=== PATIENT | female | born 1990 ===

== ENCOUNTER 2020-06-27 22:46 | Emergency (ER) | payer OTHER, SELFPAY ==
--- NOTE | ~2020-06-27 | US_ITS ---
EXAMINATION: ABDOMINAL ULTRASOUND LIMITED CLINICAL INFORMATION: Right upper quadrant pain. COMPARISON: 06/15/2018. TECHNIQUE: Real-time imaging of the right upper quadrant abdominal viscera. FINDINGS: PANCREAS: The visualized pancreatic head and body are normal in appearance. The remainder of the pancreas is obscured from visualization by the overlying bowel gas. LIVER: The liver is of normal size and echogenicity without focal lesions nor intrahepatic biliary ductal dilation. GALLBLADDER: Normal. The gallbladder is physiologically distended without evidence of stones, sludge, polyps, wall thickening or pericholecystic fluid. COMMON BILE DUCT: Normal in caliber measuring 0.2 cm in diameter. RIGHT KIDNEY: Normal. No hydronephrosis. No renal calculi or focal parenchymal lesions. The kidney measures 11.5 cm in maximum dimension. FREE FLUID: None. US/US abdomen limited IMPRESSION: Unremarkable limited right upper quadrant ultrasound.
[2020-06-27 22:50] VITALS: BP 116/59; PULSE 86; RESP 16; TEMP 36.8; O2SAT 96; BMI 32.5
--- NOTE | 2020-06-27 23:48 | ED.ABDPAIN ---
HPI - Abdominal Pain General Chief Complaint: Abdominal Pain Stated Complaint: ABD PAIN Time Seen by Provider: 06/27/20 23:39 Source: patient Mode of arrival: ambulatory Limitations: no limitations History of Present Illness HPI narrative: Patient chronic upper abdominal pain for last 5 years with multiple evaluation patient claims nobody has done anything on her pain has not seen any product management intern has not any endoscopy done patient now is 18 weeks comes for pain which is no different than in the past. No nausea no vomiting no diarrhea no vaginal bleed no urinary complaints no fever no chills MD elicited complaint: abdominal pain Pertinent past history: none Onset (ago): year(s) Pain Consistency: constant Location: epigastric and RUQ Severity: mild Exacerbating factors: nothing Relieving factors: nothing Related Data Previous Rx's Medication Instructions Recorded omeprazole 40 mg PO DAILY #30 cap 06/28/20 Allergies Allergy/AdvReac Type Severity Reaction Status Date / Time No Known Allergies Allergy Unverified 12/23/19 18:11 [No Known Allergies*] Review of Systems Review of Systems Constitutional : No Weight loss, No Fever, No Chills ENT/Mouth : No sore throat, No Rhinorrhea Eyes: No Eye Pain, No Swelling Cardiovascular : No Chest Pain, no palpitations Respiratory : No Cough, No Sputum, no shortness of breath Gastrointestinal : no Nausea, No Vomiting, No Diarrhea, ++ abdominal Pain, no black stools Genitourinary : No Dysuria, No Urinary Frequency Musculoskeletal : No joint pain, No Myalgias, No Joint Swelling Skin : No Skin Lesions, No rash Neuro : No Weakness, No Numbness, No Dizziness, No Headache Psych : No Anxiety/Panic, No Depression Heme/Lymph: No Bruising, No Lymphadenopathy Endocrine : No Polyuria, No Polydipsia All other systems reviewed and are negative Physical Exam Vital Signs: Vital Signs: Last Vital Signs Temp 98.3 F 06/27/20 22:50 Pulse 86 06/27/20 22:50 Resp 16 06/27/20 22:50 BP 116/59 L 06/27/20 22:50 Pulse Ox 96 06/27/20 22:50 Body Mass Index 32.5 Appearance: Alert. Oriented X3. No acute distress. Eyes: Pupils equal, round and reactive to light. ENT: Pharynx normal. Neck: Normal inspection. Neck supple. CVS: Normal heart rate and rhythm. Pulses normal. Respiratory: No respiratory distress. Breath sounds normal. Abdomen: Soft mild tenderness in epigastric area no significant tenderness in right upper quadrant area . Bowel sounds are present, no CVA tenderness, gravid uterus+ Skin: Skin warm and dry. Normal skin color. Normal skin turgor. Extremities: No lower extremity edema. Neuro: Oriented X 3. No motor deficit. No sensory deficit. MDM - Abdominal Pain MDM Narrative Medical decision making narrative: Patient nonspecific chronic abdominal pain with week history says no follow-up was done and not seen by product management intern will check the labs checked the records from [facility] give her Prilosec and Maalox ultrasound of abdomen was negative for gallstones Differential Diagnosis Differential diagnosis: Likely abdominal pain, gastritis and peptic ulcer disease Lab Data Attestation: I reviewed the patient's lab results. Result diagrams: 06/28/20 00:28 06/28/20 00:28 Labs: Lab Results 06/28/20 06/28/20 06/28/20 Range/Units 00:28 00:28 00:28 WBC 14.8 H (4.8-10.8) X10*3/uL RBC 3.83 L (4.20-5.50) X10*6/uL Hgb 12.2 (12.0-16.0) g/dl Hct 37.1 (37-47) % MCV 96.9 (80-98) fL MCH 31.9 (27.0-33.0) pg MCHC 32.9 (31.0-35.0) g/dl RDW 13.3 (11.0-16.0) % Plt Count 233 (160-400) X10*3/uL MPV 11.0 (9.4-12.3) fL Immature Gran % (Auto) 0.7 H (0.0-0.4) % Neut % (Auto) 76.8 H (45-73) % Lymph % (Auto) 16.5 L (20-40) % [place] % (Auto) 5.6 (2-11) % Eos % (Auto) 0.3 (0-4) % Baso % (Auto) 0.1 (0-2) % Lymph # (Auto) 2.4 (1.2-4.9) X10*3/uL [place] # (Auto) 0.8 (0.1-1.2) X10*3/uL Eos # (Auto) 0.0 (0.0-0.4) X10*3/uL Baso # (Auto) 0.0 (0.0-0.2) X10*3/uL Abs Immat Gran (auto) 0.11 H (0.00-0.03) X10*3/uL Absolute Neuts (auto) 11.3 H (2.0-8.3) X10*3/uL Absolute Nucleated RBC 0.000 (0.0-0.012) X10*3/uL Nucleated RBC % (auto) 0.0 (0.0-0.2) /100WBC Sodium 135 (135-145) mmol/L Potassium 3.7 (3.3-5.1) mmol/L Chloride 102 (96-108) mmol/L Carbon Dioxide 23 (22-29) mmol/L Anion Gap 14 (12-20) BUN 9 (9-16) mg/dL Creatinine 0.64 (0.5-1.4) mg/dL Estim Creat Clear Calc 135.1 Estimated GFR > 60 Random Glucose 95 (60-115) mg/dL Calcium 9.1 (8.4-10.2) mg/dL Total Bilirubin < 0.2 (0.0-1.0) mg/dL Direct Bilirubin < 0.2 (0.0-0.5) mg/dL AST 12 (5-31) U/L ALT 10 (0-31) U/L Alkaline Phosphatase 70 (39-117) U/L Total Protein 6.8 (6.5-8.0) g/dL Albumin 3.7 (3.5-5.0) g/dL Lipase 34 (8-78) U/L Urine Color YELLOW Urine Appearance CLEAR Urine pH 6.0 (5.0-8.0) Ur Specific [place] >= 1.030 H (1.005-1.025) Urine Protein NEG (NEG-TRACE) MG/DL Urine Glucose (UA) NEG (NEG) MG/DL Urine Ketones NEG (NEG) MG/DL Urine Blood NEG (NEG) Urine Nitrite NEG (NEG) Ur Leukocyte Esterase NEG (NEG) Discharge Plan Discharge Clinical Impression: Chronic GERD Patient Disposition: Home, Self-Care Instructions: Gastroesophageal Reflux Disease (ED) Additional Instructions: Avoid fried/ spicy food Take medication as advised. Follow-up with product management intern Prescriptions: New omeprazole 40 mg capsule,delayed release(DR/EC) 40 mg PO DAILY Qty: 30 RF: 0 PMFSH Past Medical History Medical History Tonsillectomy planned Social History Social History Advance Directives: No Advance Directives Information Provided: No
[2020-06-28] MEDS: Magnesium Hydrox/Alum Hydrox 30 ML ORAL.SUSP PO (00:31)
[2020-06-28] MEDS: Omeprazole 40 MG CAPSULE.DR PO (00:31)
[2020-06-28 00:33] LABS: Basophils Percent Auto 0.1 % (0-2); Eosinophils Percent Auto 0.3 % (0-4); Hematocrit 37.1 % (37-47); Hemoglobin 12.2 g/dl (12.0-16.0); Imm Gran Abs Auto 0.11 X10*3/uL (0.00-0.03); Imm Gran Pct Auto 0.7 % (0.0-0.4); Lymphocytes Absolute Auto 2.4 X10*3/uL (1.2-4.9); Lymphocytes Percent Auto 16.5 % (20-40); MANUAL DIFF FLAG NO; Mean Corpuscular HGB Conc 32.9 g/dl (31.0-35.0); Mean Corpuscular Hemoglobin 31.9 pg (27.0-33.0); Mean Corpuscular Volume 96.9 fL (80-98); Monocytes Absolute Auto 0.8 X10*3/uL (0.1-1.2); Monocytes Percent Auto 5.6 % (2-11); Neutrophils Absolute Auto 11.3 X10*3/uL (2.0-8.3); Neutrophils Percent Auto 76.8 % (45-73); Platelet Count 233 X10*3/uL (160-400); Red Blood Count 3.83 X10*6/uL (4.20-5.50); Red Cell Distribution Width 13.3 % (11.0-16.0); White Blood Count 14.8 X10*3/uL (4.8-10.8)
[2020-06-28 00:37] LABS: Glucose Urine UA NEG (NEG); Leukocyte Esterase Urine NEG (NEG); Nitrite Urine NEG (NEG); Specific Gravity - Urine >= 1.030 (1.005-1.025); Urine Blood NEG (NEG); Urine Ketones NEG (NEG); Urine Protein NEG (NEG-TRACE)
[2020-06-28 00:40] LABS: Appearance Urine CLEAR; Color Urine YELLOW
[2020-06-28 01:10] VITALS: BP 122/60; PULSE 80; RESP 16; O2SAT 98
[2020-06-28 01:10] LABS: Alanine Aminotransferase 10 U/L (0-31); Albumin Level 3.7 g/dL (3.5-5.0); Alkaline Phosphatase 70 U/L (39-117); Anion Gap 14 (12-20); Aspartate Amino Transferase 12 U/L (5-31); Bilirubin Direct < 0.2 mg/dL (0.0-0.5); Bilirubin Total < 0.2 mg/dL (0.0-1.0); Blood Urea Nitrogen 9 mg/dL (9-16); Calcium 9.1 mg/dL (8.4-10.2); Carbon Dioxide 23 mmol/L (22-29); Chloride 102 mmol/L (96-108); Creatinine Clr Calc Pharmacy 135.1; Estimated Glomerular Filt Rate > 60; Glucose Random 95 mg/dL (60-115); Lipase 34 U/L (8-78); Potassium 3.7 mmol/L (3.3-5.1); Sodium 135 mmol/L (135-145); Total Protein 6.8 g/dL (6.5-8.0)
== END 2020-06-28 02:29 | disposition home or self-care (01) ==
PROVIDERS: Emergency Provider Internal Medicine
DX: K21.9 Gastro-esophageal reflux disease without esophagitis (principal); R10.11 Right upper quadrant pain; Z79.899 Other long term (current) drug therapy
CPT/HCPCS: 36415; 76705; 80048; 80076; 81003; 83690; 85025; 99284

== ENCOUNTER 2022-04-19 17:47 | Emergency (ER) | payer OTHER, SELFPAY ==
--- NOTE | ~2022-04-19 | CT_ITS ---
EXAMINATION: CT HEAD WITHOUT CONTRAST CLINICAL INFORMATION: Blurred vision. COMPARISON: None. TECHNIQUE: Contiguous axial imaging was performed from the skull base to vertex without intravenous administration of contrast. Coronal and sagittal reformatted images are performed at the CT scanner. [This CT examination was performed using dose optimization techniques as appropriate, variously including the following: *Automated exposure control *Adjustment of mA and/or kV according to patient size (this includes techniques or standardized protocols for targeted exams where dose is matched to indication/reason for exam; i.e. extremities or head) *Use of iterative reconstruction technique] DLP: 602 mGy-cm. FINDINGS: There is no evidence of acute intracranial hemorrhage or territorial infarction. No abnormal mass-effect or midline shift is seen. [place] to white matter differentiation is well preserved. No extra-axial fluid collections are identified. The ventricles are normal in size. There is no abnormal attenuation within the brain parenchyma. There is no osseous abnormality. The mastoid air cells and visualized portions of the paranasal sinuses are well-aerated. CT/CT head/brain wo IV con IMPRESSION: No acute intracranial pathology.
[2022-04-19 17:50] VITALS: BP 136/96; PULSE 121; RESP 18; TEMP 36.6; O2SAT 100; BMI 32.9
--- NOTE | 2022-04-19 17:54 | ECG_ITS ---
Test Reason : CP Blood Pressure : / mmHG Vent. Rate : 081 BPM Atrial Rate : 081 BPM P-R Int : 146 ms QRS Dur : 078 ms QT Int : 368 ms P-R-T Axes : 064 003 021 degrees QTc Int : 427 ms Normal sinus rhythm Normal ECG No previous ECGs available Referred By: Generic ED Physician Electronically Signed By:Scot Zavaleta
--- NOTE | 2022-04-19 18:31 | ED.CHESTPAIN ---
HPI - Chest Pain General Chief Complaint: Chest Pain Stated Complaint: hard time breathing Time Seen by Provider: 04/19/22 18:02 Source: patient Mode of arrival: ambulatory Limitations: no limitations History of Present Illness HPI narrative: 31-year-old female no significant medical history presenting to the emergency department with multiple complaints patient is reporting substernal nonradiating chest pressure associated with discomfort with deep breathing, patient also reports some associated shortness of breath both at rest and with exertion, she has been having a tugging sensation in her left shoulder which she has a difficult time describing, patient tells me that she has been experiencing dizziness described as room spinning worsened with positional changes better at rest, 1 dizziness is severe she feels like she is going to pass out and her vision goes black. Patient tells male this has been going on for 3-4 days not improving. Denies fevers, chills, cough, headache, vision changes, weakness. 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 Related Data Previous Rx's Medication Instructions Recorded omeprazole 40 mg capsule,delayed 40 mg PO DAILY #30 caps 06/28/20 release cefuroxime axetil 250 mg tablet 250 mg PO BID 7 days #14 tabs 04/19/22 meclizine 25 mg tablet 25 mg PO DAILY PRN dizziness #14 04/19/22 tabs Allergies Allergy/AdvReac Type Severity Reaction Status Date / Time No Known Allergies Allergy Unverified 12/23/19 18:11 [No Known Allergies*] Review of Systems Review of Systems: Constitutional : No Weight loss, No Fever, No Chills, No Fatigue, No Malaise ENT/Mouth : No sore throat, No Rhinorrhea Eyes: No Eye Pain, No Swelling, No Redness Cardiovascular : + Chest Pain, + SOB, + Dyspnea on Exertion, No Orthopnea, No Edema, No Palpitations Respiratory : No Cough, No Sputum, No Wheezing Gastrointestinal : No Nausea, No Vomiting, No Diarrhea, No Constipation, No abdominal Pain, No Hematochezia, No Melena Genitourinary : No Dysuria, No Urinary Frequency, No Hematuria, Musculoskeletal : No joint pain, No Myalgias, No Joint Swelling Skin : No Skin Lesions, No rash Neuro : No Weakness, No Numbness, + Dizziness, No Headache Psych : No Anxiety/Panic, No Depression All other systems reviewed and are negative Yes all other systems are reviewed and are negative [facility] Past Medical History Attestation statement: The following information was validated with the patient. Source: old records reviewed and nursing notes reviewed Medical History Tonsillectomy planned Social History Social History Smoked in Last 30 Days: Yes Use of substances other than those prescribed or required for medical reasons: Yes Substance Use Type: Marijuana Advance Directives: No Advance Directives Information Provided: No Patient : No Physical Exam Vital Signs: Vital Signs: Last Vital Signs Temp 98.1 F 04/19/22 20:35 Pulse 79 04/19/22 20:35 Resp 20 04/19/22 20:35 BP 122/74 04/19/22 20:35 Pulse Ox 97 04/19/22 20:35 O2 Del Method 04/19/22 20:35 BMI result Body Mass Index 32.9 Vital signs stable Appearance: Alert.? Oriented X3.? No acute distress.? Head: Normocephalic, atraumatic, no step-offs or deformities Eyes: Pupils equal, round and reactive to light.? Extraocular movements intact and pain-free. ENT: Pharynx normal.? Neck: Normal inspection.? Neck supple.? CVS: Normal heart rate and rhythm.? Pulses normal.? Respiratory: No respiratory distress.? Breath sounds normal.? Abdomen: Soft and nontender.? Skin: Skin warm and dry.? Normal skin color.? Normal skin turgor.? Extremities: No lower extremity edema.? No calf ttp. 5/5 strength to bilateral upper and lower extremities Back: No midline tenderness, no C-spine tenderness, full range of motion, no CVA tenderness bilaterally Neuro: Oriented X 3.? No motor deficit.? No sensory deficit. CN 2-12 intact . Normal [id number], fner-ir-[id number], steady tandem gait with normal coordination. NIH stroke scale 0. Course Reevaluation(s) Reevaluation #1: CBC within normal limits. Chemistry with no acute findings requiring intervention. Negative troponin, EKG nonischemic. BNP within normal limits. D-dimer negative unlikely PE. Urine infected will start patient on Ceftin. Orthostatic vital signs negative. Flu/COVID negative. CT of the head no acute findings. Patient feeling slightly better after fluids and meclizine. Time: 20:31 Reevaluation #2: Educated patient on diagnosis and treatment plan, answered all question, patient verbalizes understanding. At this time patient will be discharged home, advised to return with new or worsening symptoms. Educated on worrisome signs and symptoms and when to return. At this time I feel comfortable discharge home. Medications Administered Discontinued Medications Generic Name Dose Route Start Last Admin Trade Name Freq PRN Reason Stop Dose Admin Sodium Chloride 1,000 mls @ 999 mls/hr 04/19/22 19:00 04/19/22 19:20 Ns IV 04/19/22 20:00 999 mls/hr .Q1H1M KERRY Administration Ketorolac Tromethamine 30 mg 04/19/22 18:49 04/19/22 19:36 Ketorolac Tromethamine 15 Mg/Ml Vial IVPUSH 04/19/22 18:50 30 mg ONCE ONE Administration Meclizine HCl 25 mg 04/19/22 18:48 04/19/22 19:36 Meclizine Hcl 25 Mg Tablet PO 04/19/22 18:49 25 mg ONCE ONE Administration Medical Decision Making Medical Decision Making [facility] Narrative: 1828 31-year-old female presents with chest pain, shortness of breath, dizziness times 3-4 days worsening. Physical exam benign Likely BPPV or viral infection. Unlikely PE, DVT, ACS, CHF, pneumonia, intracranial hemorrhage, stroke, posterior stroke. Plan at this time labs, imaging, urine, orthostatic vital signs. Will give meclizine and fluids. Differential Diagnosis Differential Diagnoses: The differential diagnosis associated with the presentation includes Likely BPPV or viral infection. Unlikely PE, DVT, ACS, CHF, pneumonia, intracranial hemorrhage, stroke, posterior stroke. Admission/Observation Consideration of admission/observation: Escalation of care including admission/observation considered Lab Data [facility] Lab Attestation statement: I reviewed the patient's lab results. 04/19/22 19:12 04/19/22 19:12 Labs: Lab Results 04/19/22 04/19/22 04/19/22 Range/Units 19:12 19:12 19:12 WBC 9.5 (4.8-10.8) X10*3/uL RBC 4.76 (4.20-5.50) X10*6/uL Hgb 14.8 (12.0-16.0) g/dl Hct 45.2 (37.0-47.0) % MCV 95.0 (80.0-98.0) fL MCH 31.1 (27.0-33.0) pg MCHC 32.7 (31.0-35.0) g/dl RDW 12.3 (11.0-16.0) % Plt Count 302 (160-400) X10*3/uL MPV 10.1 (9.4-12.3) fL Immature Gran % (Auto) 0.2 (0.0-0.4) % Neut % (Auto) 72.5 (45-73) % Lymph % (Auto) 21.4 (20-40) % [place] % (Auto) 5.3 (2-11) % Eos % (Auto) 0.3 (0-4) % Baso % (Auto) 0.3 (0-2) % Lymph # (Auto) 2.0 (1.2-4.9) X10*3/uL [place] # (Auto) 0.5 (0.1-1.2) X10*3/uL Eos # (Auto) 0.0 (0.0-0.4) X10*3/uL Baso # (Auto) 0.0 (0.0-0.2) X10*3/uL Abs Immat Gran (auto) 0.02 (0.00-0.03) X10*3/uL Absolute Neuts (auto) 6.9 (2.0-8.3) x10*3/uL Absolute Nucleated RBC 0.000 (0.0-0.012) X10*3/uL Nucleated RBC % (auto) 0.0 (0.0-0.2) /100WBC D-Dimer High Sensitivty NG/ML Sodium 139 (135-145) mmol/L Potassium 4.6 D (3.3-5.1) mmol/L Chloride 105 (96-108) mmol/L Carbon Dioxide 24 (22-29) mmol/L Anion Gap 15 (12-20) BUN 13 (9-16) mg/dL Creatinine 0.76 (0.5-1.4) mg/dL Estim Creat Clear Calc 108.1 Estimated GFR > 60 Random Glucose 88 (60-115) mg/dL Calcium 10.1 D (8.4-10.2) mg/dL Total Bilirubin 0.3 (0.0-1.0) mg/dL AST 19 (5-31) U/L ALT 17 (0-31) U/L Alkaline Phosphatase 84 (39-117) U/L Troponin I High Sens < 3.5 (<3.5-17.0) ng/L B-Natriuretic Peptide (<100) pg/mL Total Protein 8.3 H (6.5-8.0) g/dL Albumin 4.6 (3.5-5.0) g/dL Urine Color Urine Appearance Urine pH (5.0-9.0) Ur Specific [place] (1.005-1.025) Urine Protein (Neg-Trace) mg/dL Urine Glucose (UA) (Negative) mg/dL Urine Ketones (Negative) mg/dL Urine Blood (Negative) Urine Nitrite (Negative) Ur Leukocyte Esterase (Negative) Urine RBC (0-2) /HPF Urine WBC (0-5) /HPF Ur Squamous Epith Cells (0-2) /HPF Urine Bacteria (None Seen) Hyaline Casts (0-2) /LPF Urine Test (NEGATIVE) COVID-19 (HUYEN) (Negative) COVID-19 Clin Com Influenza Type A (GARY) (Negative) Influenza Type B (GARY) (Negative) Influenza A & B Note 04/19/22 04/19/22 04/19/22 Range/Units 19:12 19:12 19:12 WBC (4.8-10.8) X10*3/uL RBC (4.20-5.50) X10*6/uL Hgb (12.0-16.0) g/dl Hct (37.0-47.0) % MCV (80.0-98.0) fL MCH (27.0-33.0) pg MCHC (31.0-35.0) g/dl RDW (11.0-16.0) % Plt Count (160-400) X10*3/uL MPV (9.4-12.3) fL Immature Gran % (Auto) (0.0-0.4) % Neut % (Auto) (45-73) % Lymph % (Auto) (20-40) % [place] % (Auto) (2-11) % Eos % (Auto) (0-4) % Baso % (Auto) (0-2) % Lymph # (Auto) (1.2-4.9) X10*3/uL [place] # (Auto) (0.1-1.2) X10*3/uL Eos # (Auto) (0.0-0.4) X10*3/uL Baso # (Auto) (0.0-0.2) X10*3/uL Abs Immat Gran (auto) (0.00-0.03) X10*3/uL Absolute Neuts (auto) (2.0-8.3) x10*3/uL Absolute Nucleated RBC (0.0-0.012) X10*3/uL Nucleated RBC % (auto) (0.0-0.2) /100WBC D-Dimer High Sensitivty 220 NG/ML Sodium (135-145) mmol/L Potassium (3.3-5.1) mmol/L Chloride (96-108) mmol/L Carbon Dioxide (22-29) mmol/L Anion Gap (12-20) BUN (9-16) mg/dL Creatinine (0.5-1.4) mg/dL Estim Creat Clear Calc Estimated GFR Random Glucose (60-115) mg/dL Calcium (8.4-10.2) mg/dL Total Bilirubin (0.0-1.0) mg/dL AST (5-31) U/L ALT (0-31) U/L Alkaline Phosphatase (39-117) U/L Troponin I High Sens (<3.5-17.0) ng/L B-Natriuretic Peptide < 10 (<100) pg/mL Total Protein (6.5-8.0) g/dL Albumin (3.5-5.0) g/dL Urine Color Urine Appearance Urine pH (5.0-9.0) Ur Specific [place] (1.005-1.025) Urine Protein (Neg-Trace) mg/dL Urine Glucose (UA) (Negative) mg/dL Urine Ketones (Negative) mg/dL Urine Blood (Negative) Urine Nitrite (Negative) Ur Leukocyte Esterase (Negative) Urine RBC (0-2) /HPF Urine WBC (0-5) /HPF Ur Squamous Epith Cells (0-2) /HPF Urine Bacteria (None Seen) Hyaline Casts (0-2) /LPF Urine Test (NEGATIVE) COVID-19 (HUYEN) (Negative) COVID-19 Clin Com Influenza Type A (GARY) Negative (Negative) Influenza Type B (GARY) Negative (Negative) Influenza A & B Note See Note 04/19/22 04/19/22 04/19/22 Range/Units 19:12 19:12 19:12 WBC (4.8-10.8) X10*3/uL RBC (4.20-5.50) X10*6/uL Hgb (12.0-16.0) g/dl Hct (37.0-47.0) % MCV (80.0-98.0) fL MCH (27.0-33.0) pg MCHC (31.0-35.0) g/dl RDW (11.0-16.0) % Plt Count (160-400) X10*3/uL MPV (9.4-12.3) fL Immature Gran % (Auto) (0.0-0.4) % Neut % (Auto) (45-73) % Lymph % (Auto) (20-40) % [place] % (Auto) (2-11) % Eos % (Auto) (0-4) % Baso % (Auto) (0-2) % Lymph # (Auto) (1.2-4.9) X10*3/uL [place] # (Auto) (0.1-1.2) X10*3/uL Eos # (Auto) (0.0-0.4) X10*3/uL Baso # (Auto) (0.0-0.2) X10*3/uL Abs Immat Gran (auto) (0.00-0.03) X10*3/uL Absolute Neuts (auto) (2.0-8.3) x10*3/uL Absolute Nucleated RBC (0.0-0.012) X10*3/uL Nucleated RBC % (auto) (0.0-0.2) /100WBC D-Dimer High Sensitivty NG/ML Sodium (135-145) mmol/L Potassium (3.3-5.1) mmol/L Chloride (96-108) mmol/L Carbon Dioxide (22-29) mmol/L Anion Gap (12-20) BUN (9-16) mg/dL Creatinine (0.5-1.4) mg/dL Estim Creat Clear Calc Estimated GFR Random Glucose (60-115) mg/dL Calcium (8.4-10.2) mg/dL Total Bilirubin (0.0-1.0) mg/dL AST (5-31) U/L ALT (0-31) U/L Alkaline Phosphatase (39-117) U/L Troponin I High Sens (<3.5-17.0) ng/L B-Natriuretic Peptide (<100) pg/mL Total Protein (6.5-8.0) g/dL Albumin (3.5-5.0) g/dL Urine Color Yellow Urine Appearance Cloudy Urine pH 7.5 (5.0-9.0) Ur Specific [place] 1.010 (1.005-1.025) Urine Protein Negative (Neg-Trace) mg/dL Urine Glucose (UA) Negative (Negative) mg/dL Urine Ketones Negative (Negative) mg/dL Urine Blood Negative (Negative) Urine Nitrite Negative (Negative) Ur Leukocyte Esterase Large (3+) H (Negative) Urine RBC 0-2 (0-2) /HPF Urine WBC 21-50 H (0-5) /HPF Ur Squamous Epith Cells >20 (0-2) /HPF Urine Bacteria 2+ (None Seen) Hyaline Casts 0-2 (0-2) /LPF Urine Test NEGATIVE (NEGATIVE) COVID-19 (HUYEN) Negative (Negative) COVID-19 Clin Com See Note Influenza Type A (GARY) (Negative) Influenza Type B (GARY) (Negative) Influenza A & B Note Independent Interpretation I performed an independent interpretation of an: Plain X-Ray and CT Scan Radiology Impression Discussion of test interpretation with radiology: I have reviewed the radiologist's reading. External Record Review External record reviewed: Inpatient record, Outpatient record, Prior outpatient labs and Outside ED record Core Measures AMI core measures followed: Yes Measure exclusions: not indicated Critical Care Time Critical Care Time Critical Care Time: No Discharge Plan Discharge Clinical Impression: UTI (urinary tract infection), Vertigo Patient Disposition: Home, Self-Care Instructions: Urinary Tract Infection in Women (ED), Vertigo (ED) Additional Instructions: Take your medications as prescribed. If you were prescribed antibiotics today, it is important that you take your medication to their entirety, do not skip any doses, do not finish them early. Follow-up with your primary care provider this week. Return to the emergency department with new or worsening symptoms. Such as fevers, chills, chest pain, shortness of breath, nausea, vomiting, dizziness, headache, vision changes, lethargy, weakness, changes in speech, difficulties with ambulation. In case of emergency call 911 Please make sure your switching positions slowly, rapid movements can increase dizziness. If you are feeling dizzy you should not drive. Prescriptions: New cefuroxime axetil 250 mg tablet 250 mg PO BID 7 Days Qty: 14 0RF meclizine 25 mg tablet 25 mg PO DAILY PRN (Reason: dizziness) Qty: 14 0RF No Action omeprazole 40 mg capsule,delayed release(DR/EC) 40 mg PO DAILY Qty: 30 0RF Referrals: Physician,Unknown J [Primary Care Provider] - 2 days Stand Alone Forms: Work/School Release
[2022-04-19] MEDS: 0.9 % Sodium Chloride 1,000 ML 999 ML IV (19:20)
[2022-04-19 19:22] VITALS: BP 133/88; PULSE 77; RESP 16; TEMP 36.4; O2SAT 96
[2022-04-19 19:25] LABS: MANUAL DIFF FLAG NO
--- NOTE | 2022-04-19 19:25 | PC.NURSE ---
Assessment: Pt's V/ S are stable, pt is on the continuous catheter finisher and inspector and it shows NSR. Pt's respiratory, cardiac and neuron assessment at the time of the assessment was with in normal. Pt denies any psychological issues at this moment. Pt has IV 20g on her RAC, IVF are running meds were administered as order.
[2022-04-19 19:27] LABS: Basophils Percent Auto 0.3 % (0-2); Eosinophils Percent Auto 0.3 % (0-4); Hematocrit 45.2 % (37.0-47.0); Hemoglobin 14.8 g/dl (12.0-16.0); Imm Gran Abs Auto 0.02 X10*3/uL (0.00-0.03); Imm Gran Pct Auto 0.2 % (0.0-0.4); Lymphocytes Percent Auto 21.4 % (20-40); Mean Corpuscular HGB Conc 32.7 g/dl (31.0-35.0); Mean Corpuscular Hemoglobin 31.1 pg (27.0-33.0); Mean Platelet Volume 10.1 fL (9.4-12.3); Monocytes Absolute Auto 0.5 X10*3/uL (0.1-1.2); Monocytes Percent Auto 5.3 % (2-11); Neutrophils Absolute Auto 6.9 x10*3/uL (2.0-8.3); Neutrophils Percent Auto 72.5 % (45-73); Platelet Count 302 X10*3/uL (160-400); Red Blood Count 4.76 X10*6/uL (4.20-5.50); Red Cell Distribution Width 12.3 % (11.0-16.0); White Blood Count 9.5 X10*3/uL (4.8-10.8)
[2022-04-19 19:28] LABS: Appearance Urine Cloudy; Color Urine Yellow; Glucose Urine UA Negative (Negative); Leukocyte Esterase Urine Large (3+) (Negative); Nitrite Urine Negative (Negative); PH 7.5 (5.0-9.0); UMIC TRIGGER UACC YES; Urine Blood Negative (Negative); Urine Ketones Negative (Negative); Urine Protein Negative (Neg-Trace)
[2022-04-19 19:32] VITALS: BP 113/79; PULSE 76
[2022-04-19 19:32] LABS: Urine Pregnancy NEGATIVE (NEGATIVE)
[2022-04-19 19:33] VITALS: BP 114/87; PULSE 81
[2022-04-19 19:33] LABS: UPreg QC Valid YES
[2022-04-19 19:34] VITALS: BP 111/87; PULSE 83
[2022-04-19 19:35] LABS: D Dimer High Sensitivity 220 NG/ML
[2022-04-19] MEDS: Meclizine HCl 25 MG TABLET PO (19:36)
[2022-04-19] MEDS: Ketorolac Tromethamine 15 MG/ML VIAL 30 MG IVPUSH (19:36)
[2022-04-19 19:44] LABS: Bacteria Urine 2+ (None Seen); Hyaline Casts Urine 0-2 /LPF (0-2); RBC Urine 0-2 /HPF (0-2); Squamous Epithelial Cell Urine >20 /HPF (0-2); UACC Culture Trigger YES; WBC Urine 21-50 /HPF (0-5)
[2022-04-19 19:45] LABS: COVID-19 Test Negative (Negative); IDNOW Serial# 16C4AD1C
[2022-04-19 19:48] LABS: IDNOW Serial# BCCEAD1C; Influenza A Negative (Negative); Influenza B2 Negative (Negative)
[2022-04-19 19:52] LABS: Alanine Aminotransferase 17 U/L (0-31); Albumin Level 4.6 g/dL (3.5-5.0); Alkaline Phosphatase 84 U/L (39-117); Anion Gap 15 (12-20); Aspartate Amino Transferase 19 U/L (5-31); Bilirubin Total 0.3 mg/dL (0.0-1.0); Blood Urea Nitrogen 13 mg/dL (9-16); Calcium 10.1 mg/dL (8.4-10.2); Carbon Dioxide 24 mmol/L (22-29); Chloride 105 mmol/L (96-108); Creatinine Clr Calc Pharmacy 108.1; Estimated Glomerular Filt Rate > 60; Glucose Random 88 mg/dL (60-115); Potassium 4.6 mmol/L (3.3-5.1); Sodium 139 mmol/L (135-145); Total Protein 8.3 g/dL (6.5-8.0)
[2022-04-19 19:58] LABS: Troponin-I High Sensitivity < 3.5 ng/L (<3.5-17.0)
[2022-04-19 19:59] LABS: B Type Natriuretic Peptide < 10 pg/mL (<100)
[2022-04-19 20:35] VITALS: BP 122/74; PULSE 79; RESP 20; TEMP 36.7; O2SAT 97
== END 2022-04-19 21:49 | disposition home or self-care (01) ==
PROVIDERS: Physician Assistant; Emergency Provider Emergency Medicine
DX: N39.0 Urinary tract infection, site not specified (principal); R42 Dizziness and giddiness; R07.89 Other chest pain; R06.02 Shortness of breath; Z20.822 Contact with and (suspected) exposure to COVID-19; Z20.828 Contact with and (suspected) exposure to other viral communicable diseases
CPT/HCPCS: 36415; 70450; 80053; 81001; 81025; 83880; 84484; 85025; 85379; 87086; 87502; 87635; 93005; 96374; 99284; 99285; J1885

== ENCOUNTER 2022-08-24 14:10 | Emergency (ER) | payer OTHER, SELFPAY ==
--- NOTE | ~2022-08-24 | US_ITS ---
EXAMINATION: US ABDOMEN LIMITED CLINICAL INFORMATION: Upper quadrant pain, rule out gallbladder abnormality. COMPARISON: Abdominal ultrasound dated 06/28/2020. TECHNIQUE: Real-time imaging of the right upper quadrant abdominal viscera. FINDINGS: PANCREAS: Visualized portions unremarkable. LIVER: Unremarkable. GALLBLADDER: Unremarkable. COMMON BILE DUCT: Normal in caliber measuring 0.3 cm in diameter. RIGHT KIDNEY: 10.0 cm. Unremarkable. FREE FLUID: None. US/US abdomen limited IMPRESSION: Unremarkable right upper quadrant ultrasound.
[2022-08-24 14:15] VITALS: BP 126/80; PULSE 78; RESP 18; TEMP 36.3; O2SAT 100; BMI 32.6
--- NOTE | 2022-08-24 14:22 | ED_ITS ---
HPI - General Adult General Chief complaint: Abdominal Pain Stated complaint: sharp abd pain going into back Time Seen by Provider: 08/24/22 16:02 Source: patient, RN notes reviewed and old records reviewed Mode of arrival: ambulatory Limitations: no limitations History of Present Illness HPI narrative: 31-year-old female who denies any past medical history presents for evaluation of abdominal pain. Patient reports she has had the pain for the last few days. The pain is constant, she has nausea without vomiting Her pain as sharp, stabbing, 8/10 and radiates to her back Denies any fevers, chills. She denies any history of abdominal surgeries No other complaints or concerns at this time Related Data Previous Rx's Medication Instructions Recorded omeprazole 40 mg capsule,delayed 40 mg PO DAILY #30 caps 06/28/20 release cefuroxime axetil 250 mg tablet 250 mg PO BID 7 days #14 tabs 04/19/22 cyclobenzaprine 10 mg tablet 10 mg PO BEDTIME PRN muscle spasm 04/19/22 #7 tabs meclizine 25 mg tablet 25 mg PO DAILY PRN dizziness #14 04/19/22 tabs calcium carbonate 1,000 1 tab PO Q4-6H PRN dyspepsia #20 08/24/22 mg-simethicone 60 mg chewable tabs tablet (Maalox Advanced) omeprazole 20 mg tablet,delayed 20 mg PO DAILY #30 tabs 08/24/22 release Allergies Allergy/AdvReac Type Severity Reaction Status Date / Time No Known Allergies Allergy Verified 08/24/22 14:15 [No Known Allergies*] Review of Systems Constitutional: Constitutional: Reports as per HPI, Denies chills, Denies fatigue, Denies fever(s) and Denies headache(s) ENT: Denies headache(s) Cardiovascular: Cardiovascular: Denies chest pain and Denies dyspnea Respiratory: Respiratory: Denies cough and Denies dyspnea Gastrointestinal: Gastrointestinal: Reports abdominal pain, Denies constipation, Reports nausea and Denies vomiting Genitourinary: Genitourinary: Denies dysuria Neurologic: Denies headache(s) and Denies focal weakness Endocrine: Endocrine: Denies fatigue PMFSH Past Medical History Medical History Tonsillectomy planned Social History Social History Alcohol intake: never Smoked in Last 30 Days: Yes Substance Use Type: Marijuana Substance Use Frequency Other:: 1 Last Used Substance: Days (ago) Advance Directives: No Physical Exam ED Vital Signs: Vital Signs - 24 hr 08/24/22 14:15 08/24/22 14:29 08/24/22 16:11 Temperature 97.3 F 98.1 F Pulse Rate 78 92 85 Respiratory Rate 18 18 18 Blood Pressure 126/80 118/68 119/68 Pulse Oximetry 100 100 99 Oxygen Delivery Method Room Air Room Air Room Air BMI result Body Mass Index 32.6 Const General: healthy appearing, comfortable, no acute distress, alert and awake Nutritional Appearance: well nourished Orientation/consciousness: patient oriented x3 HENMT Head: Yes normocephalic and Yes atraumatic Eyes Eyelids: Yes eyelids normal Conjunctivae: conjunctivae normal Sclerae: sclerae normal Corneas: corneas normal Pupils: Equal, round and reactive pupils present EOM: EOMs intact bilaterally Neck Neck: Yes full ROM Resp Effort & Inspection: normal respiratory effort, able to speak in complete sentences and not labored Cardio Rate: regular rate Rhythm: regular rhythm GI Inspection: No distended Palpation (GI): Soft to palpation, not firm and Tenderness to palpation present (GI) in the epigastrum and in the RUQ; not in the LLQ, not in the RLQ, not in the LUQ, not periumbilically, not suprapubicly and Payan's sign negative Skin General skin exam: no rashes or lesions noted and elasticity normal Neuro General: patient oriented x3 Cranial nerves: Yes Equal, round and reactive pupils present and Yes Bilaterally intact EOM present Cognition (Neuro): normal cognition Extrem Other: Moving all extremities well without any obvious deformities Course Course Course Narrative: RME performed by Alice Her PA-C. Patient is a 31 year old assigned female at presenting to the emergency department with abdominal pain. Labs ordered. Patient placed back in the waiting room pending room availability and results. Reevaluation(s) Reevaluation #1: Patient's pain improved with GI cocktail. Discussed results with the patient, she is stable for discharge. The patient has Crohn's disease so will follow-up with her own GI doctor Time: 17:50 Medications Administered Discontinued Medications Generic Name Dose Route Start Last Admin Trade Name Freq PRN Reason Stop Dose Admin Al Hydroxide/Mg Hydroxide 30 ml 08/24/22 17:02 08/24/22 17:11 Magnesium Hydrox/Alum Hydrox 30 Ml Oral.Susp PO 08/24/22 17:03 30 ml ONCE ONE Administration Ondansetron HCl 4 mg 08/24/22 17:02 08/24/22 17:10 Ondansetron Odt 4 Mg Tab.Rapdis TRANSLINGU 08/24/22 17:03 4 mg ONCE ONE Administration Medical Decision Making Medical Decision Making [facility] Narrative: 31-year-old female presents for evaluation of abdominal pain or nausea. Her pain is in her upper abdomen, she is tender right upper quadrant moving on the gallbladder to evaluate for biliary disease. Her labs are reviewed without any significant abnormalities. Urine is negative for infection or blood to suggest obstructive uropathy. Patient was offered analgesia but declines Differential Diagnosis Abdominal pain Cholelithiasis Acute cholecystitis Gastritis Peptic ulcer disease Constipation Pancreatitis Lab Data [facility] Lab Attestation statement: I reviewed the patient's lab results. 08/24/22 14:56 08/24/22 14:56 Labs: Lab Results 08/24/22 08/24/22 08/24/22 Range/Units 14:40 14:56 14:56 WBC 4.9 (4.8-10.8) X10*3/uL RBC 4.07 L (4.20-5.50) X10*6/uL Hgb 13.0 (12.0-16.0) g/dl Hct 39.3 (37.0-47.0) % MCV 96.6 (80.0-98.0) fL MCH 31.9 (27.0-33.0) pg MCHC 33.1 (31.0-35.0) g/dl RDW 11.9 (11.0-16.0) % Plt Count 217 D (160-400) X10*3/uL MPV 10.5 (9.4-12.3) fL Immature Gran % (Auto) 0.2 (0.0-0.4) % Neut % (Auto) 57.9 (45-73) % Lymph % (Auto) 34.4 (20-40) % Wise % (Auto) 6.7 (2-11) % Eos % (Auto) 0.6 (0-4) % Baso % (Auto) 0.2 (0-2) % Lymph # (Auto) 1.7 (1.2-4.9) X10*3/uL Wise # (Auto) 0.3 (0.1-1.2) X10*3/uL Eos # (Auto) 0.0 (0.0-0.4) X10*3/uL Baso # (Auto) 0.0 (0.0-0.2) X10*3/uL Abs Immat Gran (auto) 0.01 (0.00-0.03) X10*3/uL Absolute Neuts (auto) 2.8 (2.0-8.3) x10*3/uL Absolute Nucleated RBC 0.000 (0.0-0.012) X10*3/uL Nucleated RBC % (auto) 0.0 (0.0-0.2) /100WBC Sodium 141 (135-145) mmol/L Potassium 3.9 (3.3-5.1) mmol/L Chloride 109 H (96-108) mmol/L Carbon Dioxide 25 (22-29) mmol/L Anion Gap 11 L (12-20) BUN 13 (9-16) mg/dL Creatinine 0.77 (0.5-1.4) mg/dL Estim Creat Clear Calc 106.2 Estimated GFR > 60 Random Glucose 107 (60-115) mg/dL Calcium 9.2 D (8.4-10.2) mg/dL Magnesium 2.1 (1.6-2.6) mg/dL Total Bilirubin 0.5 (0.0-1.0) mg/dL AST 13 (5-31) U/L ALT 9 (0-31) U/L Alkaline Phosphatase 68 (39-117) U/L Total Protein 6.9 (6.5-8.0) g/dL Albumin 4.2 (3.5-5.0) g/dL Beta HCG, Quant < 2 mIU/mL Urine Color Yellow Urine Appearance Cloudy Urine pH 7.5 (5.0-9.0) Ur Specific [place] 1.015 (1.005-1.025) Urine Protein Negative (Neg-Trace) mg/dL Urine Glucose (UA) Negative (Negative) mg/dL Urine Ketones Negative (Negative) mg/dL Urine Blood Negative (Negative) Urine Nitrite Negative (Negative) Ur Leukocyte Esterase Negative (Negative) Radiology Impression Discussion of test interpretation with radiology: I have reviewed the radiologist's reading. (Normal right upper quadrant ultrasound) Discharge Plan Discharge Clinical Impression: Abdominal pain Patient Disposition: Home, Self-Care Instructions: Peptic Ulcer (ED) Additional Instructions: Take omeprazole daily for the next month Use Maalox as needed for breakthrough abdominal pain Avoid using ibuprofen or other NSAIDs Follow-up with your GI doctor, as you may require another endoscopy to evaluate for stomach ulcers Prescriptions: New omeprazole 20 mg tablet,delayed release (DR/EC) 20 mg PO DAILY Qty: 30 0RF Maalox Advanced 1,000-60 mg tablet,chewable 1 tab PO Q4-6H PRN (Reason: dyspepsia) Qty: 20 0RF No Action omeprazole 40 mg capsule,delayed release(DR/EC) 40 mg PO DAILY Qty: 30 0RF cefuroxime axetil 250 mg tablet 250 mg PO BID 7 Days Qty: 14 0RF meclizine 25 mg tablet 25 mg PO DAILY PRN (Reason: dizziness) Qty: 14 0RF cyclobenzaprine 10 mg tablet 10 mg PO BEDTIME PRN (Reason: muscle spasm) Qty: 7 0RF Stand Alone Forms: Work/School Release
[2022-08-24 14:29] VITALS: BP 118/68; PULSE 92; RESP 18; TEMP 36.7; O2SAT 100
--- NOTE | 2022-08-24 14:34 | PC.NURSE ---
Alert and oriented. complaining of abdominal pain x 2 days. States it radiates to her lower back near her kidneys. Denies Sob but states nausea comes and goes along with the dry heaves. States afraid to eat or drink because she thinks it will make it worse. VSS. states pain to abdomen is a 6/10.
[2022-08-24 14:54] LABS: Appearance Urine Cloudy; Color Urine Yellow; Glucose Urine UA Negative (Negative); Leukocyte Esterase Urine Negative (Negative); Nitrite Urine Negative (Negative); PH 7.5 (5.0-9.0); Specific Gravity - Urine 1.015 (1.005-1.025); Urine Blood Negative (Negative); Urine Ketones Negative (Negative); Urine Protein Negative (Neg-Trace)
[2022-08-24 15:00] LABS: MANUAL DIFF FLAG NO
[2022-08-24 15:02] LABS: Basophils Percent Auto 0.2 % (0-2); Eosinophils Percent Auto 0.6 % (0-4); Hematocrit 39.3 % (37.0-47.0); Imm Gran Abs Auto 0.01 X10*3/uL (0.00-0.03); Imm Gran Pct Auto 0.2 % (0.0-0.4); Lymphocytes Absolute Auto 1.7 X10*3/uL (1.2-4.9); Lymphocytes Percent Auto 34.4 % (20-40); Mean Corpuscular HGB Conc 33.1 g/dl (31.0-35.0); Mean Corpuscular Hemoglobin 31.9 pg (27.0-33.0); Mean Corpuscular Volume 96.6 fL (80.0-98.0); Mean Platelet Volume 10.5 fL (9.4-12.3); Monocytes Absolute Auto 0.3 X10*3/uL (0.1-1.2); Monocytes Percent Auto 6.7 % (2-11); Neutrophils Absolute Auto 2.8 x10*3/uL (2.0-8.3); Neutrophils Percent Auto 57.9 % (45-73); Platelet Count 217 X10*3/uL (160-400); Red Blood Count 4.07 X10*6/uL (4.20-5.50); Red Cell Distribution Width 11.9 % (11.0-16.0); White Blood Count 4.9 X10*3/uL (4.8-10.8)
[2022-08-24 15:34] LABS: Alanine Aminotransferase 9 U/L (0-31); Albumin Level 4.2 g/dL (3.5-5.0); Alkaline Phosphatase 68 U/L (39-117); Anion Gap 11 (12-20); Aspartate Amino Transferase 13 U/L (5-31); Bilirubin Total 0.5 mg/dL (0.0-1.0); Blood Urea Nitrogen 13 mg/dL (9-16); Calcium 9.2 mg/dL (8.4-10.2); Carbon Dioxide 25 mmol/L (22-29); Chloride 109 mmol/L (96-108); Creatinine Clr Calc Pharmacy 106.2; Estimated Glomerular Filt Rate > 60; Glucose Random 107 mg/dL (60-115); Magnesium 2.1 mg/dL (1.6-2.6); Potassium 3.9 mmol/L (3.3-5.1); Sodium 141 mmol/L (135-145); Total Protein 6.9 g/dL (6.5-8.0)
[2022-08-24 15:35] LABS: HCG Quantitative < 2 mIU/mL
[2022-08-24 16:11] VITALS: BP 119/68; PULSE 85; RESP 18; O2SAT 99
--- NOTE | 2022-08-24 16:12 | PC.NURSE ---
Alert and oriented. States pain still remains in upper abdomen. Awaiting ultrasound
[2022-08-24] MEDS: Ondansetron ODT 4 MG TAB.RAPDIS TRANSLINGU (17:10)
[2022-08-24] MEDS: Magnesium Hydrox/Alum Hydrox 30 ML ORAL.SUSP PO (17:11)
--- NOTE | 2022-08-24 17:12 | PC.NURSE ---
medicated with po meds per order. Gaging on liquid meds sating she feels like she is going to throw up.
--- NOTE | 2022-08-24 17:48 | PC.NURSE ---
patient declined lidocaine stating it would make her throw up. Education provided, patient stating she was not going to take medication
--- NOTE | 2022-08-24 18:26 | PC.NURSE ---
Patient reports some relief after taking po medications. Discharge information reviewed with patient.
== END 2022-08-24 18:25 | disposition home or self-care (01) ==
PROVIDERS: Physician Assistant Medical; Emergency Provider Internal Medicine
DX: R10.9 Unspecified abdominal pain (principal)
CPT/HCPCS: 36415; 76705; 80053; 81003; 83735; 84702; 85025; 99284

== ENCOUNTER 2022-10-23 12:46 | Emergency (ER) | payer OTHER, SELFPAY ==
--- NOTE | ~2022-10-23 | XR_ITS ---
EXAMINATION: XR CHEST CLINICAL INFORMATION: Shortness of breath COMPARISON: None available. TECHNIQUE: Frontal view of the chest was obtained. 1337 hours. FINDINGS: No significant abnormality is noted involving the heart, lungs, mediastinum, bony thorax or soft tissues. XR/XR chest 1V IMPRESSION: Unremarkable examination.
[2022-10-23 12:58] VITALS: BP 131/80; PULSE 93; RESP 20; TEMP 37.1; O2SAT 99; BMI 31.0
--- NOTE | 2022-10-23 13:02 | ED_ITS ---
HPI - SOB/Dyspnea General Chief Complaint: Asthma Stated Complaint: Diff Breathing Asthma Time Seen by Provider: 10/23/22 13:44 Source: patient Mode of arrival: ambulatory Limitations: no limitations History of Present Illness HPI Narrative: Patient is a 32 year old assigned female at with a history of asthma p resenting to the emergency department today with increased asthma symptoms (lung pain), bone pain - specifically in the right knee, and unintentional weight loss over the last 1 month of approximately 15lbs. Patient states that over the last month, she has had significantly worse asthma symptoms that have not gotten better despite using her inhaler and nebulizer. Patient states that her new apartment has a lot of water issues and thus, has a lot of mold that no matter what she does, keeps coming back. Patient states that she has been having this bone pain, specifically in the right knee, for months but has not been able to find a cause. Patient states that she will randomly feel like her right lower leg got placed in a bath of cold water or have sharp pains. Patient states that she does work on her feet at an assisted living facility and at [employer]. Patient denies any dizziness, lightheadedness, abdominal pain, nausea, vomiting, fever, chills, blurry vision, double vision, loss of vision, chest pain, back pain, night sweats, pain with urination, increased urinary frequency, increased urinary urgency, blood in her urine or stool, syncope or a near syncopal episode, recent trauma or falls, bowel incontinence, bladder incontinence, bowel retention, bladder retention, or any other complaints at this time. Pertinent past history: asthma Context: allergen exposure (mold) Timing: constant Exacerbating factors: nothing Relieving factors: nothing Known history of: asthma Associated symptoms: wheezing Treatment prior to arrival: bronchodilator Related Data Previous Rx's Medication Instructions Recorded omeprazole 40 mg capsule,delayed 40 mg PO DAILY #30 caps 06/28/20 release cefuroxime axetil 250 mg tablet 250 mg PO BID 7 days #14 tabs 04/19/22 cyclobenzaprine 10 mg tablet 10 mg PO BEDTIME PRN muscle spasm 04/19/22 #7 tabs meclizine 25 mg tablet 25 mg PO DAILY PRN dizziness #14 04/19/22 tabs calcium carbonate 1,000 1 tab PO Q4-6H PRN dyspepsia #20 08/24/22 mg-simethicone 60 mg chewable tabs tablet (Maalox Advanced) omeprazole 20 mg tablet,delayed 20 mg PO DAILY #30 tabs 08/24/22 release albuterol sulfate 1.25 mg/3 mL 1.25 mg (3 mL) inhalation QID PRN 10/23/22 solution for nebulization shortness of breath or wheezing #90 mL prednisone 20 mg tablet 20 mg PO DAILY 7 days #7 tabs 10/23/22 Allergies Allergy/AdvReac Type Severity Reaction Status Date / Time No Known Allergies Allergy Verified 08/24/22 14:15 [No Known Allergies*] Review of Systems Constitutional: Constitutional: Reports no additional constitutional complaints, Denies chills, Denies fever(s), Denies night sweats and Reports weight loss (approximately 15lbs over 1 month) Eyes: Eyes: Reports no additional eye complaints, Denies blurry vision, Denies change in vision, Denies diplopia, Denies eye discharge, Denies loss of vision and Denies eye pain ENT: Denies dizziness Cardiovascular: Cardiovascular: Reports no additional cardiovascular complaints, Denies chest pain, Denies lightheadedness, Denies Loss of Consciousness and Denies dyspnea Respiratory: Respiratory: Reports no additional respiratory complaints, Denies dyspnea and Reports wheezing Comments: lung pain Gastrointestinal: Gastrointestinal: Reports no additional gastrointestinal complaints, Denies abdominal pain, Denies melena, Denies hematochezia, Denies change in bowel habits and Denies change in stool character Genitourinary: Genitourinary: Denies hematuria, Denies urinary frequency, Denies dysuria, Denies urinary incontinence, Denies urinary hesitancy and Denies urinary urgency Musculoskeletal: Musculoskeletal: Reports no additional musculoskeletal complaints, Denies numbness and Denies tingling Comments: bone pain , right lower leg / knee pain Neurologic: Denies dizziness, Denies loss of vision, Denies numbness and Denies tingling Psychiatric: Psychiatric: Reports no additional psychiatric complaints Endocrine: Endocrine: Reports no additional endocrine complaints Hematologic/Lymphatic: Hematologic/Lymphatic: Reports no additional hematologic/lymphatic complaints Allergic/Immunologic: Allergic/Immunologic: Reports no additional allergic/immunologic complaints and Reports wheezing PMFSH Past Medical History Attestation statement: The following information was validated with the patient. Source: old records reviewed and nursing notes reviewed Medical History Tonsillectomy planned Social History Social History Alcohol intake: never Smoked in Last 30 Days: Yes Use of substances other than those prescribed or required for medical reasons: No Substance Use Type: Marijuana Advance Directives: No Advance Directives Information Provided: No Patient : No Physical Exam Vital Signs: Vital Signs: Last Vital Signs Temp 98.7 F 10/23/22 12:58 Pulse 74 10/23/22 14:17 Resp 16 10/23/22 14:17 BP 131/80 10/23/22 12:58 Pulse Ox 99 10/23/22 12:58 O2 Del Method Room Air 10/23/22 12:58 BMI result Body Mass Index 31.0 Const: General: cooperative, no acute distress, alert and awake Nutritional Appearance: well nourished Orientation/consciousness: patient oriented x3 Limitations: no limitations HEENT: Head: Yes normal to inspection and Yes atraumatic Ears: hearing grossly normal bilaterally and external ears normal General nose exam: Normal external nose present, no nasal discharge noted and no epistaxis Face and sinus: Yes normal facial exam, No abrasion and No laceration Mouth: Normal oral and palatal mucosa present, no drooling and no muffled voice Eyes: General: appearance normal, both eyes and all related structures Periorbital: periorbital findings normal Eyelids: Yes eyelids normal Conjunctivae: conjunctivae normal Pupils: Equal, round and reactive pupils present EOM: EOMs intact bilaterally Neck: Neck: Yes normal visual inspection, Yes full ROM and Yes no lymphadenopathy Chest: Chest palpation & inspection: normal inspection of the chest Resp: Effort & Inspection: normal respiratory effort and able to speak in complete sentences Auscultation: clear to auscultation bilaterally GI: Inspection: Yes normal to inspection Neuro: General: patient oriented x3 and moves all extremities Cranial ne rves: Yes Equal, round and reactive pupils present Cognition (Neuro): normal cognition Motor exam (neuro): 5/5 motor strength present throughout Sensory Exam: Normal double simultaneous stimulation for sensation Coordination: [id number] test normal Extrem: General: Yes normal to inspection, Yes full ROM and Yes capillary refill normal Psych: Appearance: grossly normal Mental Status: mental status grossly normal Affect: normal affect Attitude: cooperative Thought process: Normal thought process present Thought content: Normal thought content present Insight: Good insight present (Psych) Course Course Course Narrative: RME- 32 year old female patient with asthma presents to the ED with c/o of SOB worsening over the last month associated with dizziness, fatigue, and pleuritic chest pain. Lungs are clear bilaterally, hesitant to take deep breath due to pain, vital signs are stable. Plan: chest xray, lab workup, and EKG. Reevaluation(s) Reevaluation #1: After discharging the patient, she expressed she was very upset with the care she received here and demanded to speak to my attending physician. Dr. Solis informed and spoke with the patient. Time: 15:42 Medications Administered Discontinued Medications Generic Name Dose Route Start Last Admin Trade Name Freq PRN Reason Stop Dose Admin Albuterol Sulfate 7.5 mg/ 0 mg 10/23/22 13:57 10/23/22 14:13 Albuterol/Ipratropium 3 ml INHALE 10/23/22 13:58 1 each ONCE ONE Administration Methylprednisolone Sodium Succinate 60 mg 10/23/22 13:57 10/23/22 14:05 Methylprednisolone Sod Succ 125 Mg/2 Ml Vial IM 10/23/22 13:58 60 mg ONCE ONE Administration Medical Decision Making Medical Decision Making MDM Narrative: Patient is a 32 year old assigned female at with a history of asthma presenting to the emergency department today with increased asthmatic symptoms ( lung pain ), right lower extremity pain / bone pain , and unintentional weight loss. Patient's physical exam was unremarkable. Compared the patient's current weight of 77kg to her previous weight on her ED visit from that was 80.9kg. Patient has had a 8.58lbs weight loss over just under 2 months time. Patient's blood work was unremarkable. Patient's chest x-ray showed no acute process. 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 Patient prescribed prednisone to address both the asthma exacerbation and right lower leg neuropathy. Patient's physical exam showed no evidence of right lower leg injury, DVT, or necrosis. I explained my physical exam findings as well as all test results to the patient. I answered all questions asked by the patient. Patient received a duoneb (albuterol 10mg + Ipratroprium 0.5mg in 12mL) and IM Solu-Medrol while in the department. I stressed the importance of the patient taking her medication as prescribed, including the prednisone and the albuterol nebulizer refill. I stressed the importance of the patient thoroughly removing the mold from her home and getting a dehumidifier with additional increased ventilation through the home. I recommended the patient move if she is unable to remove the mold effectively from her living space. I stressed the importance of the patient following up with her primary care provider and an orthopedic provider (for the right lower leg pain). I stressed the importance of the patient returning to the emergency department immediately if her symptoms were to worsen or if she were to develop any dizziness, shortness of breath, difficulty breathing, chest pain, blurry vision, loss of vision, nausea, vomiting, abdominal pain, fever, chills, back pain, or any other complaints. Patient verbalized agreement and understanding with this treatment plan and discharge. Differential Diagnosis Differential Diagnoses: The differential diagnosis associated with the presentation includes Asthma exacerbation Viral illness Mold exposure Admission/Observation Consideration of admission/observation: Escalation of care including a dmission/observation considered Patient would have been admitted to the hospital had her work up had any findings where hospital admission was appropriate and her clinical presentation warranted hospital admission. Lab Data MDM Lab Attestation statement: I reviewed the patient's lab results. My interpretation of these studies and their corresponding values is that they are grossly normal. 10/23/22 13:18 10/23/22 13:18 Labs: Lab Results 10/23/22 10/23/22 Range/Units 13:18 13:18 WBC 5.5 (4.8-10.8) X10*3/uL RBC 4.05 L (4.20-5.50) X10*6/uL Hgb 12.8 (12.0-16.0) g/dl Hct 39.2 (37.0-47.0) % MCV 96.8 (80.0-98.0) fL MCH 31.6 (27.0-33.0) pg MCHC 32.7 (31.0-35.0) g/dl RDW 12.5 (11.0-16.0) % Plt Count 247 (160-400) X10*3/uL MPV 10.2 (9.4-12.3) fL Immature Gran % (Auto) 0.2 (0.0-0.4) % Neut % (Auto) 63.4 (45-73) % Lymph % (Auto) 27.2 (20-40) % [place] % (Auto) 8.3 (2-11) % Eos % (Auto) 0.5 (0-4) % Baso % (Auto) 0.4 (0-2) % Lymph # (Auto) 1.5 (1.2-4.9) X10*3/uL [place] # (Auto) 0.5 (0.1-1.2) X10*3/uL Eos # (Auto) 0.0 (0.0-0.4) X10*3/uL Baso # (Auto) 0.0 (0.0-0.2) X10*3/uL Abs Immat Gran (auto) 0.01 (0.00-0.03) X10*3/uL Absolute Neuts (auto) 3.5 (2.0-8.3) x10*3/uL Absolute Nucleated RBC 0.000 (0.0-0.012) X10*3/uL Nucleated RBC % (auto) 0.0 (0.0-0.2) /100WBC Sodium 139 (135-145) mmol/L Potassium 4.0 (3.3-5.1) mmol/L Chloride 107 (96-108) mmol/L Anion Gap TNP BUN 12 (9-16) mg/dL Creatinine 0.76 (0.5-1.4) mg/dL Estim Creat Clear Calc 104.0 Estimated GFR > 60 Random Glucose 89 (60-115) mg/dL Calcium 9.5 (8.4-10.2) mg/dL Independent Interpretation I performed an independent interpretation of an: Plain X-Ray Interpretation: My interpretation is in agreement with the radiologist's impression of this imaging study. EXAMINATION: XR CHEST CLINICAL INFORMATION: Shortness of breath COMPARISON: None available. TECHNIQUE: Frontal view of the chest was obtained. 1337 hours. FINDINGS: No significant abnormality is noted involving the heart, lungs, mediastinum, bony thorax or soft tissues. XR/XR chest 1V IMPRESSION: Unremarkable examination. Dictated By: Tucker Toure Signed By: Electronically signed by Tucker?Mesfin 10/23/22 3572 Radiology Impression Discussion of test interpretation with radiology: I have reviewed the radiologist's reading. Prescription Management I considered prescription management with: Other (oral steroids) Chronic Conditions Patient?s care impacted by: Other (asthma) Attestation Attending Attestation: I reviewed FLUE BLOWER/PA/Resident note, assessment and plan. I agree with the documentation, assessment and plan unless otherwise stated. Patient presented with a number of issues. Her issues seem to been going on for period of 1 year. Predominantly she was complaining of right knee pain. However after further evaluation she was complaining of some left knee pain that was not a major issue today. She has complained of bilateral hand pain. Sometimes she is having joint swelling. Patient is ambulating with steady gait. I do not appreciate any significant joint swelling. There is no trauma to any of these joints. I suspect there may be an underlying inflammatory condition such as SLE, rheumatoid arthritis, Yoan syndrome, scleroderma, arteritis, etc.. I have referred the patient to Rheumatology. Additionally, patient reports that her right knee gives out from under her. That is suspicious for possible internal knee injury. I am recommending follow-up with an orthopedist which was done by our physician engineer second assistant as well. There could be a necessity to have an MRI which could be done as an outpatient. Patient also complained of some respiratory related issues with possible mold exposure. Patient had n onlabored respirations. She felt better after steroids and nebulizer treatment. I spent an extensive amount of time with the patient regarding her medical management as well as discharge instructions. I would also like to note that patient had significant complaints about the way in which her care was delivered today. I addressed these concerns. I recommended patient advocacy. I did discuss her experience with the physician engineer second assistant responsible for her care. I believe the medical care was appropriate and the recommendations for outpatient follow-up were also appropriate. Patient was comfortable with this component of her care. Discharge Plan Discharge Clinical Impression: Asthma with acute exacerbation Patient Disposition: Home, Self-Care Instructions: Asthma (DC) Additional Instructions: Follow up with your primary care provider. Return to the emergency department immediately if your symptoms worsen or if you develop any dizziness, shortness of breath, difficulty breathing, chest pain, blurry vision, loss of vision, nausea, vomiting, abdominal pain, fever, chills, back pain, or any other complaints. Prescriptions: New prednisone 20 mg tablet 20 mg PO DAILY 7 Days Qty: 7 0RF albuterol sulfate 1.25 mg/3 mL solution for nebulization 1.25 mg inhalation QID PRN (Reason: shortness of breath or wheezing) Qty: 90 0RF No Action omeprazole 40 mg capsule,delayed release(DR/EC) 40 mg PO DAILY Qty: 30 0RF cefuroxime axetil 250 mg tablet 250 mg PO BID 7 Days Qty: 14 0RF meclizine 25 mg tablet 25 mg PO DAILY PRN (Reason: dizziness) Qty: 14 0RF cyclobenzaprine 10 mg tablet 10 mg PO BEDTIME PRN (Reason: muscle spasm) Qty: 7 0RF omeprazole 20 mg tablet,delayed release (DR/EC) 20 mg PO DAILY Qty: 30 0RF Maalox Advanced 1,000-60 mg tablet,chewable 1 tab PO Q4-6H PRN (Reason: dyspepsia) Qty: 20 0RF Referrals: [facility] Family Medicine [Provider Group] (Call to establish and follow up with a [facility] care provider. If you already have a primary care provider, please follow up with them.) [facility] [Provider Group] (Call to establish and follow up with a primary care provider. If you already have a primary care provider, please follow up with them.) [facility] Primary [facility] [Provider Group] (Call to establish and follow up with a primary care provider. If you already have a primary care provider, please follow up with them.) [facility] [Provider Group] (Call to establish and follow up with an orthopedic provider.) Interventions: ED Discharge Assessment Last Done: 10/23/22 15:59 Discharge Date/Time: 10/23/22 16:00 Print Language: Israeli
--- NOTE | 2022-10-23 13:06 | ECG_ITS ---
Test Reason : SOB Blood Pressure : / mmHG Vent. Rate : 067 BPM Atrial Rate : 067 BPM P-R Int : 140 ms QRS Dur : 084 ms QT Int : 402 ms P-R-T Axes : 034 013 026 degrees QTc Int : 424 ms Normal sinus rhythm Normal ECG When compared with ECG of 19-APR-2022 18:55, No significant change was found Referred By: Martha Clark Electronically Signed By:Scot Zavaleta
[2022-10-23 13:23] LABS: Basophils Percent Auto 0.4 % (0-2); Eosinophils Percent Auto 0.5 % (0-4); Hematocrit 39.2 % (37.0-47.0); Hemoglobin 12.8 g/dl (12.0-16.0); Imm Gran Abs Auto 0.01 X10*3/uL (0.00-0.03); Imm Gran Pct Auto 0.2 % (0.0-0.4); Lymphocytes Absolute Auto 1.5 X10*3/uL (1.2-4.9); Lymphocytes Percent Auto 27.2 % (20-40); MANUAL DIFF FLAG NO; Mean Corpuscular HGB Conc 32.7 g/dl (31.0-35.0); Mean Corpuscular Hemoglobin 31.6 pg (27.0-33.0); Mean Corpuscular Volume 96.8 fL (80.0-98.0); Mean Platelet Volume 10.2 fL (9.4-12.3); Monocytes Absolute Auto 0.5 X10*3/uL (0.1-1.2); Monocytes Percent Auto 8.3 % (2-11); Neutrophils Absolute Auto 3.5 x10*3/uL (2.0-8.3); Neutrophils Percent Auto 63.4 % (45-73); Platelet Count 247 X10*3/uL (160-400); Red Blood Count 4.05 X10*6/uL (4.20-5.50); Red Cell Distribution Width 12.5 % (11.0-16.0); White Blood Count 5.5 X10*3/uL (4.8-10.8)
[2022-10-23] MEDS: methylPREDNISolone Sod Succ 125 MG/2 ML VIAL 60 MG IM (14:05)
[2022-10-23] MEDS: Albuterol Sulfate 7.5 MG, Albuterol/Iprat 2.5/0.5MG 3 ML 3 ML INHALE (14:13)
[2022-10-23 14:17] VITALS: PULSE 74; RESP 16; O2SAT 100
[2022-10-23 14:20] LABS: Blood Urea Nitrogen 12 mg/dL (9-16); Calcium 9.5 mg/dL (8.4-10.2); Chloride 107 mmol/L (96-108); Estimated Glomerular Filt Rate > 60; Glucose Random 89 mg/dL (60-115); Sodium 139 mmol/L (135-145)
[2022-10-23 19:42] LABS: Carbon Dioxide 21 mmol/L (22-29)
== END 2022-10-23 16:00 | disposition home or self-care (01) ==
PROVIDERS: Physician Assistant; Emergency Provider Emergency Medicine
DX: J45.901 Unspecified asthma with (acute) exacerbation (principal); R06.02 Shortness of breath; R42 Dizziness and giddiness; R53.83 Other fatigue; R63.4 Abnormal weight loss; Z68.31 Body mass index [BMI] 31.0-31.9, adult; F17.200 Nicotine dependence, unspecified, uncomplicated; F12.90 Cannabis use, unspecified, uncomplicated; Z79.899 Other long term (current) drug therapy
CPT/HCPCS: 36415; 71045; 80048; 85025; 93005; 94640; 96372; 99284; 99285; J2930

== ENCOUNTER → 2022-10-23 13:06 | Outpatient (BNV) | payer OTHER, SELFPAY | PROVIDERS: Emergency Provider Emergency Medicine; Visit Provider Internal Medicine Cardiovascular Disease | DX: R06.02 Shortness of breath (principal) | CPT/HCPCS: 93010 ==

== ENCOUNTER 2023-06-15 16:59 | Emergency (ER) | payer OTHER, SELFPAY ==
--- NOTE | ~2023-06-15 | US_ITS ---
EXAMINATION: US VENOUS ULTRASOUND WITH DOPPLER LOWER EXTREMITY, RIGHT CLINICAL INFORMATION: Pain, history of DVT COMPARISON: None available. TECHNIQUE: Ultrasound of the deep veins is performed from the hip to the calf with compression sonography and color and pulse Doppler assessment. Spectral analysis with color-flow imaging is performed. FINDINGS: There is normal venous compression and respiratory variation and augmented flow. The visualized common femoral vein, superficial femoral vein, profunda femoral vein, popliteal vein, and the trifurcation region shows no evidence of deep venous thrombosis. There is no significant popliteal fossa cyst. If the patient's symptoms persist, followup ultrasound in 5 days 7 days might be of value to exclude proximal propagation from a non-visualized calf vein. US/US venous duplex LE RT IMPRESSION: No DVT demonstrated in the right lower extremity.
[2023-06-15 17:08] VITALS: BP 119/75; PULSE 91; RESP 19; TEMP 36.6; O2SAT 98; BMI 32.9
--- NOTE | 2023-06-15 17:08 | ED_ITS ---
HPI - General Adult General Chief complaint: Extremity Injury, Lower Stated complaint: left leg pain, blood clot? rt leg hot spot/sore Time Seen by Provider: 06/15/23 18:42 Source: patient Mode of arrival: ambulatory Limitations: no limitations History of Present Illness HPI narrative: 32-year-old female with a history of a DVT induced presents to the ER with complaints of pain to the posterior right ankle and calf with no known injury or trauma. Patient denies any associated numbness, weakness or tingling of the extremity. No shortness of breath or chest pain. She is a mom of 4 children lives on a 3rd floor apartment and goes up and down the stairs quite frequently throughout the day Related Data Previous Rx's Medication Instructions Recorded omeprazole 40 mg capsule,delayed 40 mg PO DAILY #30 caps 06/28/20 release cefuroxime axetil 250 mg tablet 250 mg PO BID 7 days #14 tabs 04/19/22 cyclobenzaprine 10 mg tablet 10 mg PO BEDTIME PRN muscle spasm 04/19/22 #7 tabs meclizine 25 mg tablet 25 mg PO DAILY PRN dizziness #14 04/19/22 tabs calcium carbonate 1,000 1 tab PO Q4-6H PRN dyspepsia #20 08/24/22 mg-simethicone 60 mg chewable tabs tablet (Maalox Advanced) omeprazole 20 mg tablet,delayed 20 mg PO DAILY #30 tabs 08/24/22 release albuterol sulfate 1.25 mg/3 mL 1.25 mg (3 mL) inhalation QID PRN 10/23/22 solution for nebulization shortness of breath or wheezing #90 mL prednisone 20 mg tablet 20 mg PO DAILY 7 days #7 tabs 10/23/22 Allergies Allergy/AdvReac Type Severity Reaction Status Date / Time No Known Allergies Allergy Verified 06/15/23 17:08 [No Known Allergies*] Review of Systems Review of Systems: Yes all other systems are reviewed and are negative Constitutional: Constitutional: Reports no additional constitutional complaints, Denies body ache(s), Denies chills, Denies fever(s), Denies headache(s) and Denies weakness Eyes: Eyes: Reports no additional eye complaints and Denies change in vision ENT: Reports system reviewed and no additional complaints, except as documented, Denies dizziness, Denies headache(s), Denies nasal congestion, Denies nasal discharge and Denies neck pain Cardiovascular: Cardiovascular: Reports no additional cardiovascular comp laints, Denies chest pain, Denies leg edema and Denies dyspnea Respiratory: Respiratory: Reports no additional respiratory complaints, Denies cough and Denies dyspnea Gastrointestinal: Gastrointestinal: Reports no additional gastrointestinal complaints, Denies abdominal pain, Denies diarrhea, Denies nausea and Denies vomiting Genitourinary: Genitourinary: Reports no additional female genitourinary complaints and Denies urinary incontinence Musculoskeletal: Musculoskeletal: Reports no additional musculoskeletal complaints, Denies back pain, Reports arthralgias, Denies joint swelling, Denies limited range of motion, Denies neck pain, Denies numbness and Denies tingling Integumentary/Breasts: Skin/Breast: Reports system reviewed and no additional complaints, except as docu and Denies rash Neurologic: Reports system reviewed and no additional complaints, except as documented, Denies Abnormal speech present, Denies dizziness, Denies headache(s), Denies numbness, Denies tingling and Denies weakness PMFSH Past Medical History Attestation statement: The following information was validated with the patient. Source: old records reviewed and nursing notes reviewed Medical History Tonsillectomy planned Social History Social History Alcohol intake: never Substance Use Type: Marijuana Advance Directives: No Advance Directives Information Provided: No Physical Exam ED Vital Signs: Vital Signs - 24 hr 06/15/23 17:08 Temperature 98 F Pulse Rate 91 Respiratory Rate 19 Blood Pressure 119/75 Pulse Oximetry 98 Oxygen Delivery Method Room Air BMI result Body Mass Index 32.9 Const General: cooperative, healthy appearing, comfortable and no acute distress Orientation/consciousness: patient oriented x3 Limitations: no limitations HENMT Head: Yes normal to inspection Ears: hearing grossly normal bilaterally General nose exam: Normal external nose present Face and sinus: Yes normal facial exam Mouth: Normal oral and palatal mucosa present Throat: Yes posterior oropharynx normal Eyes General: appearance normal, both eyes and all related structures Pupils: Equal, round and reactive pupils present Neck Neck: Yes normal visual inspection Chest Chest palpation & inspection: normal inspection of the chest Resp Effort & Inspection: normal respiratory effort Auscultation: clear to auscultation bilaterally Cardio Rate: regular rate Rhythm: regular rhythm Peripheral pulses: Peripheral pulses 2+ throughout GI Inspection: Yes normal to inspection Palpation (GI): Soft to palpation and nontender Auscultation: normal bowel sounds Back/Spine/Pelvis Thoracic/Lumbar Spine: thoracic and lumbar spine normal to inspection Skin General skin exam: no rashes or lesions noted Neuro General: patient oriented x3, no focal motor deficits and normal sensation to monofilament Cranial nerves: Yes Equal, round and reactive pupils present Cognition (Neuro): normal cognition Speech: No Abnormal speech present Gait exam (Neuro): Normal gait present Motor exam (neuro): 5/5 motor strength present throughout Extrem Other: Negative Russell sign. Mild tenderness the posterior right ankle and over the Achilles tendon with no palpable deformities Normal DP and PT pulses. Normal sensation. Full range of motion of the ankle, foot and lower leg General: Yes normal to inspection Course Course Course Narrative: This is a rapid medical exam. Deferred additional HPI, ROS, PE to primary provider. 32yo female with history of DVT ( induced), asthma, crohns disease here with complaints of right lower extremity pain. Will obtain US VSS Procedures Orthopedic Splinting/Casting Injury #1: Side: right Lower Extremity Injury Location: lower leg Lower Extremity Immobilizer: Warren wrap Other Orthopedic Equipment: crutches Medical Decision Making Medical Decision Making MDM Narrative: 32-year-old female with a history of a DVT induced presents to the ER with complaints of pain to the posterior right ankle and calf with no known injury or trauma. Patient denies any associated numbness, weakness or tingling of the extremity. No shortness of breath or chest pain. She is a mom of 4 children lives on a 3rd floor apartment and goes up and down the stairs quite frequently throughout the day Negative Russell sign. Mild tenderness the posterior right ankle and over the Achilles tendon with no palpable deformities Normal DP and PT pulses. Normal sensation. Full range of motion of the ankle, foot and lower leg Will check US Likely Achilles tendinitis Differential Diagnosis Differential Diagnoses: The differential diagnosis associated with the presentation includes DVT, tendinitis, low suspicion for compartment syndrome, necrotizing fasciitis, Achilles tendon rupture, cellulitis Admission/Observation Consideration of admission/observation: Escalation of care including admission/observation considered Independent Interpretation I performed an independent interpretation of an: Ultrasound Interpretation: I independently reviewed the ultrasound agree with the radiology report Radiology Impression Discussion of test interpretation with radiology: I have reviewed the radiologist's reading. Radiologist Impression: [address] [id number] Ultrasound Report Signed Patient: Ruby Moon MR#: [id number] : 1990 Acct:[id number] Age/Sex: 32 / F ADM Date: 06/15/23 Loc: .ED Attending Dr: Ordering Physician: Valerie Smith NP Date of Service: 06/15/23 Procedure(s): US venous duplex LE RT Accession Number(s): [id number] cc: Physician,Unknown ; Valerie Smith NP~ EXAMINATION: US VENOUS ULTRASOUND WITH DOPPLER LOWER EXTREMITY, RIGHT CLINICAL INFORMATION: Pain, history of DVT COMPARISON: None available. TECHNIQUE: Ultrasound of the deep veins is performed from the hip to the calf with compression sonography and color and pulse Doppler assessment. Spectral analysis with color-flow imaging is performed. FINDINGS: There is normal venous compression and respiratory variation and augmented flow. The visualized common femoral vein, superficial femoral vein, profunda femoral vein, popliteal vein, and the trifurcation region shows no evidence of deep venous thrombosis. There is no significant popliteal fossa cyst. If the patient's symptoms persist, followup ultrasound in 5 days 7 days might be of value to exclude proximal propagation from a non-visualized calf vein. US/US venous duplex LE RT IMPRESSION: No DVT demonstrated in the right lower extremity. Prescription Management I considered prescription management with: Antibiotic Discharge Plan Discharge Clinical Impression: Achilles tendinitis Patient Disposition: Home, Self-Care Instructions: Achilles Tendinitis (ED) Additional Instructions: Your ultrasound does not show a blood clot You likely have tendinitis in your Achilles tendon. Apply ice Elevate the leg Use the Warren wrap and crutches for the next few days Take Motrin or Tylenol for any pain as needed Prescriptions: No Action omeprazole 40 mg capsule,delayed release(DR/EC) 40 mg PO DAILY Qty: 30 0RF cefuroxime axetil 250 mg tablet 250 mg PO BID 7 Days Qty: 14 0RF meclizine 25 mg tablet 25 mg PO DAILY PRN (Reason: dizziness) Qty: 14 0RF cyclobenzaprine 10 mg tablet 10 mg PO BEDTIME PRN (Reason: muscle spasm) Qty: 7 0RF omeprazole 20 mg tablet,delayed release (DR/EC) 20 mg PO DAILY Qty: 30 0RF Maalox Advanced 1,000-60 mg tablet,chewable 1 tab PO Q4-6H PRN (Reason: dyspepsia) Qty: 20 0RF prednisone 20 mg tablet 20 mg PO DAILY 7 Days Qty: 7 0RF albuterol sulfate 1.25 mg/3 mL solution for nebulization 1.25 mg inhalation QID PRN (Reason: shortness of breath or wheezing) Qty: 90 0RF Referrals: Physician,Unknown J [Primary Care Provider] - 1 week
== END 2023-06-15 19:56 | disposition home or self-care (01) ==
PROVIDERS: Emergency Provider Emergency Medicine
DX: M76.62 Achilles tendinitis, left leg (principal); R60.0 Localized edema; M79.605 Pain in left leg; M25.571 Pain in right ankle and joints of right foot; Z86.718 Personal history of other venous thrombosis and embolism; Z79.01 Long term (current) use of anticoagulants
CPT/HCPCS: 29515; 93971; 99282; 99284

== ENCOUNTER 2023-08-05 10:32 | Emergency (ER) | payer OTHER, SELFPAY ==
[2023-08-05 11:17] VITALS: BP 127/79; PULSE 70; RESP 18; TEMP 36.2; O2SAT 98; BMI 34.3
--- NOTE | 2023-08-05 11:20 | ED.EYEPROB ---
HPI - Eye Problem General Chief complaint: General Medical Stated complaint: ? R/L Eye Infection Related Data Previous Rx's ?Medication ?Instructions ?Recorded omeprazole 40 mg capsule,delayed 40 mg PO DAILY #30 caps 06/28/20 release cefuroxime axetil 250 mg tablet 250 mg PO BID 7 days #14 tabs 04/19/22 cyclobenzaprine 10 mg tablet 10 mg PO BEDTIME PRN muscle spasm 04/19/22 #7 tabs meclizine 25 mg tablet 25 mg PO DAILY PRN dizziness #14 04/19/22 tabs calcium carbonate 1,000 1 tab PO Q4-6H PRN dyspepsia #20 08/24/22 mg-simethicone 60 mg chewable tabs tablet (Maalox Advanced) omeprazole 20 mg tablet,delayed 20 mg PO DAILY #30 tabs 08/24/22 release albuterol sulfate 1.25 mg/3 mL 1.25 mg (3 mL) inhalation QID PRN 10/23/22 solution for nebulization shortness of breath or wheezing #90 mL prednisone 20 mg tablet 20 mg PO DAILY 7 days #7 tabs 10/23/22 Allergies Allergy/AdvReac Type Severity Reaction Status Date / Time No Known Allergies Allergy Verified 08/05/23 11:21 [No Known Allergies*] [facility] Past Medical History Medical History Tonsillectomy planned Social History Social History Alcohol intake: never Substance Use Type: Marijuana Advance Directives: No Advance Directives Information Provided: No Do you have a plan to hurt others: No Plan Physical Exam Vital Signs: Vital Signs: Last Vital Signs Temp 97.1 F 08/05/23 11:17 Pulse 70 08/05/23 11:17 Resp 18 08/05/23 11:17 BP 127/79 08/05/23 11:17 Pulse Ox 98 08/05/23 11:17 O2 Del Method Room Air 08/05/23 11:17 BMI result Body Mass Index 34.3 Course Course Course Narrative: This is a rapid medical exam completed by Zofia LOCATION ANALYST: Additional HPI, ROS, PE not included below will be deferred to primary provider. Several days of pressure behind bilateral eyes with blurred vision. States she initially had a heachache which has since resolved. No discharge or increased tearing. Has tried OTC drops with no relief in symptoms. Denies ocular trauma Discharge Plan Discharge Clinical Impression: Left before treatment completed Patient Disposition: Left W/O Completing Treatment Prescriptions: No Action omeprazole 40 mg capsule,delayed release(DR/EC) 40 mg PO DAILY Qty: 30 0RF cefuroxime axetil 250 mg tablet 250 mg PO BID 7 Days Qty: 14 0RF meclizine 25 mg tablet 25 mg PO DAILY PRN (Reason: dizziness) Qty: 14 0RF cyclobenzaprine 10 mg tablet 10 mg PO BEDTIME PRN (Reason: muscle spasm) Qty: 7 0RF omeprazole 20 mg tablet,delayed release (DR/EC) 20 mg PO DAILY Qty: 30 0RF Maalox Advanced 1,000-60 mg tablet,chewable 1 tab PO Q4-6H PRN (Reason: dyspepsia) Qty: 20 0RF prednisone 20 mg tablet 20 mg PO DAILY 7 Days Qty: 7 0RF albuterol sulfate 1.25 mg/3 mL solution for nebulization 1.25 mg inhalation QID PRN (Reason: shortness of breath or wheezing) Qty: 90 0RF Discharge Date/Time: 08/05/23 16:33
== END 2023-08-05 16:33 | disposition left against medical advice (07) ==
PROVIDERS: Emergency Provider Emergency Medicine
DX: H53.8 Other visual disturbances (principal); H57.13 Ocular pain, bilateral; Z53.21 Procedure and treatment not carried out due to patient leaving prior to being seen by health care provider
CPT/HCPCS: 99281

== ENCOUNTER 2024-10-15 13:21 | Emergency (ER) | payer OTHER, SELFPAY ==
--- NOTE | ~2024-10-15 | US_ITS ---
CLINICAL HISTORY: pain Ultrasound OB first trimester Comparison: None available Findings: Single early intrauterine . Double decidual sac sign. MSD: 0.7 cm CRL: Not yet visualized. EGA: 5 weeks and 2 days. LILLY: 06/15/25. Previously established gestational age: N/A. Question visualization of the yolk sac. FHR: Not yet visualized. No subchorionic bleed. Normal uterus. Small cystic spaces within the endometrium. The ovaries are normal in size and echogenicity with normal arterial/venous color and spectral Doppler. Right corpus luteum. No free fluid. Impression: Single early intrauterine estimated at 5 weeks and 2 days gestational age by today's ultrasound criteria. Small cystic spaces within the endometrium may indicate cystic endometrial hyperplasia. Attention on follow up is recommended. This document has been electronically signed by: Mary Ramos MD on 10/15/2024 16:45:45
--- NOTE | ~2024-10-15 | US_ITS ---
EXAMINATION: US ABDOMEN LIMITED CLINICAL INFORMATION: Right upper quadrant pain. COMPARISON: August 24, 2022. TECHNIQUE: Real-time ultrasound limited to the right upper quadrant abdomen/gallbladder using grayscale technique. FINDINGS: Gallbladder is fluid-filled and contracted. No pericholecystic fluid collection or gallbladder wall thickening. Common bile duct measures 4 mm. US/US abdomen limited IMPRESSION: No cholelithiasis or choledocholithiasis. Negative exam. Electronically signed by: Jj Martinez MD 10/15/2024 03:59 PM EDT
[2024-10-15 13:40] VITALS: BP 112/73; PULSE 85; RESP 16; TEMP 36.2; O2SAT 99; BMI 29.1
--- NOTE | 2024-10-15 13:41 | ED.GENADULT ---
HPI - General Adult General Chief complaint: Abdominal Pain Stated complaint: R Side ?Ovary Stomach Back Pain Time Seen by Provider: 10/15/24 13:47 Source: patient and old records reviewed Mode of arrival: ambulatory Limitations: no limitations History of Present Illness ED Provider: SARAH MITCHELL narrative: 34 yo female with PMH of Crohn's disease no GI and no medications she comes in with loose stools x 3 weeks but no blood or fevers - no travel or abx use. She also reports some mild vaginal spotting at times and had positive test 3 weeks ago. She has had on and off pain in RLQ as well for 3 weeks. No n/v/, GIB symptoms, fevers, dysuria, vaginal discharge. MD complaint: abdominal pain, diarrhea, + preg test Onset (ago): week(s) (3) Location: abdomen Radiation: non-radiation Severity: moderate Quality: stabbing and aching Pain Consistency: intermittent Relieving factors: none Exacerbating factors: none Associated symptoms: loss of appetite and other (diarrhea, vagin spotting) Treatments prior to arrival: none Related Data Previous Rx's ?Medication ?Instructions ?Recorded omeprazole 40 mg capsule,delayed 40 mg PO DAILY #30 caps 06/28/20 release cefuroxime axetil 250 mg tablet 250 mg PO BID 7 days #14 tabs 04/19/22 cyclobenzaprine 10 mg tablet 10 mg PO BEDTIME PRN muscle spasm 04/19/22 #7 tabs meclizine 25 mg tablet 25 mg PO DAILY PRN dizziness #14 04/19/22 tabs calcium carbonate 1,000 1 tab PO Q4-6H PRN dyspepsia #20 08/24/22 mg-simethicone 60 mg chewable tabs tablet (Maalox Advanced) omeprazole 20 mg tablet,delayed 20 mg PO DAILY #30 tabs 08/24/22 release albuterol sulfate 1.25 mg/3 mL 1.25 mg (3 mL) inhalation QID PRN 10/23/22 solution for nebulization shortness of breath or wheezing #90 mL prednisone 20 mg tablet 20 mg PO DAILY 7 days #7 tabs 10/23/22 metoclopramide HCl 5 mg tablet 5 mg PO Q6H PRN nausea #14 tabs 10/15/24 (Reglan) vitamin no.180-ferrous 1 tab PO DAILY #30 tabs 10/15/24 fumarate 27 mg-folic acid 1 mg tablet ( Plus Vitamin-Mineral) Allergies Allergy/AdvReac Type Severity Reaction Status Date / Time No Known Allergies (No Known Allergy Verified 10/15/24 13:41 Allergies*) Review of Systems Review of Systems: Constitutional : No Weight loss, No Fever, No Chills ENT/Mouth : No sore throat, No Rhinorrhea Eyes: No Swelling, No Redness Cardiovascular : No Chest Pain, No SOB Respiratory : No Cough, No Sputum, No Wheezing Gastrointestinal : no Nausea, no Vomiting, positive Diarrhea, positive abdominal Pain, No Hematochezia, No Melena Genitourinary : No Dysuria, No Urinary Frequency, No Hematuria, No Urgency Musculoskeletal : No joint pain, No Myalgias, No Joint Swelling Skin : No Skin Lesions, No rash Neuro : No Weakness, No Numbness, No Dizziness, No Headache All other systems reviewed and are negative. [facility] Past Medical History Attestation statement: The following information was validated with the patient. Source: old records reviewed Medical History Crohn's disease Tonsillectomy planned Social History Social History Alcohol intake: never Substance Use Type: Marijuana Advance Directives: No Advance Directives Information Provided: Yes Do you have a plan to hurt others: No Plan Physical Exam ED Vital Signs: Vital Signs - 24 hr 10/15/24 13:40 10/15/24 16:00 Temperature 97.2 F 97.4 F Pulse Rate 85 80 Respiratory Rate 16 16 Blood Pressure 112/73 112/60 Pulse Oximetry 99 99 Oxygen Delivery Method Room Air Room Air BMI result Body Mass Index 29.1 Appearance: Alert. Oriented X3. No acute distress. Eyes: Pupils equal, round and reactive to light. ENT: Pharynx normal. Neck: Normal inspection. Neck supple. CVS: Normal heart rate and rhythm. Pulses normal. Respiratory: No respiratory distress. Breath sounds normal. Abdomen: Soft and nontender. RUQ ttp and + holland's sign Skin: Skin warm and dry. Normal skin color. Normal skin turgor. Extremities: No lower extremity edema. No calf ttp Neuro: Oriented X 3. No motor deficit. No sensory deficit. CN2-12 intact Course Course Course Narrative: RME, this is a rapid medical exam performed by George Villagran please refer to primary provider for complete H&P- 34 year old female presents for evaluation of right lower abdominal pain. She reports diarrhea for 2-3 weeks and pain for the last week. Plan for labs and . The patient reports a positive test at home but is unsure of her last menstrual cycle. Medical Decision Making Medical Decision Making [facility] Narrative: 34 yo female with PMH of Crohns not on meds reports diarrhea x 3 weeks, + preg test, RLQ pain but no fevers, no n/v, no urinary symptoms. She has mild vaginal spotting - at this time she also c/o increased acid and RUQ pain I have ordered labs, UA, US of GB and for ectopic. No nolvia vaginal bleeding, CRP neg doubt acute flare of Crohns or infection. Differential Diagnosis Differential Diagnoses: The differential diagnosis associated with the presentation includes gastritis, biliary colic, Crohns, PUD, ectopic, ovarian cyst Admission/Observation Consideration of admission/observation: Escalation of care including admission/observation considered labs reassuring, US of biliary tract normal - normal lipase, LFTS, plts Lab Data [facility] Lab Attestation statement: I reviewed the patient's lab results. 10/15/24 13:58 10/15/24 13:58 Labs: Lab Results 10/15/24 10/15/24 Range/Units 13:58 16:26 WBC 6.0 (4.8-10.8) X10*3/uL RBC 4.08 L (4.20-5.50) X10*6/uL Hgb 13.0 (12.0-16.0) g/dl Hct 38.7 (37.0-47.0) % MCV 94.9 (80.0-98.0) fL MCH 31.9 (27.0-33.0) pg MCHC 33.6 (31.0-35.0) g/dl RDW 12.2 (11.0-16.0) % Plt Count 250 (160-400) X10*3/uL MPV 10.6 (9.4-12.3) fL Immature Gran % (Auto) 0.2 (0.0-0.4) % Neut % (Auto) 57.0 (45-73) % Lymph % (Auto) 34.4 (20-40) % [place] % (Auto) 7.4 (2-11) % Eos % (Auto) 0.7 (0-4) % Baso % (Auto) 0.3 (0-2) % Lymph # (Auto) 2.1 (1.2-4.9) X10*3/uL [place] # (Auto) 0.4 (0.1-1.2) X10*3/uL Eos # (Auto) 0.0 (0.0-0.4) X10*3/uL Baso # (Auto) 0.0 (0.0-0.2) X10*3/uL Abs Immat Gran (auto) 0.01 (0.00-0.03) X10*3/uL Absolute Neuts (auto) 3.4 (2.0-8.3) x10*3/uL Absolute Nucleated RBC 0.000 (0.0-0.012) X10*3/uL Nucleated RBC % (auto) 0.0 (0.0-0.2) /100WBC Sodium 136 (135-145) mmol/L Potassium 3.8 (3.3-5.1) mmol/L Chloride 106 (96-108) mmol/L Carbon Dioxide 24 (22-29) mmol/L Anion Gap 10 L (12-20) BUN 11 (9-16) mg/dL Creatinine 0.72 (0.5-1.4) mg/dL Estim Creat Clear Calc 116.7 Estimated GFR > 60 Random Glucose 91 (60-115) mg/dL Calcium 9.2 (8.4-10.2) mg/dL Total Bilirubin 0.4 (0.0-1.0) mg/dL AST 22 (5-31) U/L ALT 12 (0-31) U/L Alkaline Phosphatase 60 (39-117) U/L C-Reactive Protein 0.13 (< or = 0.50) mg/dL Total Protein 7.2 (6.5-8.0) g/dL Albumin 4.4 (3.5-5.0) g/dL Lipase 22 (8-78) U/L Beta HCG, Quant 4458 mIU/mL Urine Color Yellow Urine Appearance Clear Urine pH 6.5 (5.0-9.0) Ur Specific [place] 1.010 (1.005-1.025) Urine Protein Negative (Neg-Trace) mg/dL Urine Glucose (UA) Negative (Negative) mg/dL Urine Ketones Negative (Negative) mg/dL Urine Blood Negative (Negative) Urine Nitrite Negative (Negative) Ur Leukocyte Esterase Negative (Negative) Urine RBC 0-2 (0-2) /HPF Urine WBC 0-5 (0-5) /HPF Ur Squamous Epith Cells 0-2 (0-2) /HPF Urine Bacteria None Seen (None Seen) Hyaline Casts 0-2 (0-2) /LPF Independent Interpretation I performed an independent interpretation of an: Ultrasound (no biliary colic, IUP noted) Radiology Impression Discussion of test interpretation with radiology: I have reviewed the radiologist's reading. External Record Review External record reviewed: Outpatient record Prescription Management I considered prescription management with: Other Discharge Plan Discharge Clinical Impression: Acute gastritis, Acute diarrhea Patient Disposition: Home, Self-Care Instructions: Gastritis (ED), Acute Diarrhea (ED) Additional Instructions: labs reassuring ultrasound of gallbladder normal ultrasound shows IUP 5 weeks 2 days please follow up with your OBGYN please eat a bland diet for the next 2 days follow up with your doctor rest and stay hydrated return for fevers, vomiting, worsening bleeding or any other concerns. You were seen in our Emergency Department for an early test being positive and abdominal pain/and or vaginal bleeding. It is very early on and your symptoms require repeat testing and monitoring. Your initial ultrasound did not confirm a in your uterus. You need repeat testing of your blood test (hcg) in 48 hours. Another Ultrasound may also need to be done in 5 days, this should be determined by your outpatient provider. These tests can be done at your primary care office, OBGYN office, or the Emergency Department if you cannot reach your outside providers. After discharge please monitor your symptoms and seek immediate care for bleeding heavier than a period, severe abdominal pain, fainting, or any other concerns. Please see list of local OBGYN providers below: [facility] [place] [phone] [facility] [address] [place] [phone] [facility] [place] [phone] [facility] [place] [phone] Prescriptions: New metoclopramide HCl [Reglan] 5 mg tablet 5 mg PO Q6H PRN (Reason: nausea) Qty: 14 0RF Plus Vitamin-Mineral 27 mg iron- 1 mg tablet 1 tab PO DAILY Qty: 30 2RF No Action omeprazole 40 mg capsule,delayed release(DR/EC) 40 mg PO DAILY Qty: 30 0RF cefuroxime axetil 250 mg tablet 250 mg PO BID 7 Days Qty: 14 0RF meclizine 25 mg tablet 25 mg PO DAILY PRN (Reason: dizziness) Qty: 14 0RF cyclobenzaprine 10 mg tablet 10 mg PO BEDTIME PRN (Reason: muscle spasm) Qty: 7 0RF omeprazole 20 mg tablet,delayed release (DR/EC) 20 mg PO DAILY Qty: 30 0RF Maalox Advanced 1,000-60 mg tablet,chewable 1 tab PO Q4-6H PRN (Reason: dyspepsia) Qty: 20 0RF prednisone 20 mg tablet 20 mg PO DAILY 7 Days Qty: 7 0RF albuterol sulfate 1.25 mg/3 mL solution for nebulization 1.25 mg inhalation QID PRN (Reason: shortness of breath or wheezing) Qty: 90 0RF Print Language: Russian
--- OUTSIDE RECORDS SUMMARY | 2024-10-15 13:50 | XMS_ITS | Clinical Summary ---
Author Organization [facility] Address [address] [place] [address] Phone Care Team Providers Care Ict Educator Name Role Phone Physician, Pcp Unknown Primary Care Provider Laurie vailable Allergies No known active allergies Social History Tobacco Use Types Packs/Day Years Used Date Smoking Tobacco: Never Assessed Comments Unknown Sex and Gender Information Value Date Recorded Sex Assigned at Not on file Legal Sex Female 2:56 PM EST Gender Identity Not on file Sexual Orientation Not on file Last Filed Vital Signs Vital Sign Reading Time Taken Comments Blood Pressure 112/69 06/11/2024 5:25 PM EST Pulse 70 06/11/2024 5:25 PM EST Temperature 37.2 C (99 F) 06/11/2024 5:25 PM EST Respiratory Rate 20 06/11/2024 5:25 PM EST Oxygen Saturation 99% 06/11/2024 5:25 PM EST Inhaled Oxygen Concentration - - Weight 80.3 kg (177 lb) 06/11/2024 2:29 PM EST Height 157.5 cm (5' 2 ) 06/11/2024 2:29 PM EST Body Mass Index 32.37 06/11/2024 2:29 PM EST Plan of Treatment Health Maintenance Due Date Last Done Comments Pneumococcal Vaccine: Pediatrics (0 to 5 Years) and At-Risk Patients (6 to 49 Years) (1 of 2 - PCV) 10/13/2011 Cervical Cancer Screening: Pap Smear 2013 Depression Screening 03/06/2022 HIV Screening 03/06/2022 Hepatitis C Screening 03/06/2022 Social Influencers of Health Screening 03/06/2022 COVID-19 Vaccine ( season) 2023 07/23/2022, 12/07/2021, 10/03/2021 Influenza Vaccine (#1) 2024 , 04/02/2019, 12/31/2015, Additional history exists DTaP,Tdap,and Td Vaccines (10 - Td or Tdap) 10/10/2030 10/10/2020, 04/02/2019, 10/20/2015, Additional history exists IPV Vaccines Completed 04/30/1994, 05/08, 02/05/1993, Additional history exists Varicella Vaccines Completed 12/18/2006, 03/01/1998 HPV Vaccines Completed 05/02/2008, 10/06, 12/18/2006 MMR Vaccines Completed 10/01/2016, 06/05, 04/30/1994 Hepatitis B Vaccines Completed 10/13/2017, 10/01/2016, 05/21/1993, Additional history exists HIB Vaccines Aged Out No longer eligi ble based on patient's age to complete this topic Hepatitis A Vaccines Aged Out No long er eligible based on patient's age to complete this topic Meningococcal ACWY Vaccine Aged Out N o longer eligible based on patient's age to complete this topic Meningococcal B Vaccine Aged Out No l onger eligible based on patient's age to complete this topic RSV Immunization Patients Under 20 months Aged Out No longer eligible based on patient's age to complete this topic Insurance [facility] Care Teams Ict Educator Relationship Specialty Start Date End Date Physician, Pcp Unknown PCP - General 06/11/24
[2024-10-15 14:35] LABS: MANUAL DIFF FLAG NO
[2024-10-15 14:42] LABS: Hematocrit 38.7 % (37.0-47.0); Hemoglobin 13.0 g/dl (12.0-16.0); Imm Gran Abs Auto 0.01 X10*3/uL (0.00-0.03); Imm Gran Pct Auto 0.2 % (0.0-0.4); Lymphocytes Absolute Auto 2.1 X10*3/uL (1.2-4.9); Mean Corpuscular HGB Conc 33.6 g/dl (31.0-35.0); Mean Corpuscular Hemoglobin 31.9 pg (27.0-33.0); Mean Corpuscular Volume 94.9 fL (80.0-98.0); NRBC Abs Auto 0.000 X10*3/uL (0.0-0.012); NRBC Pct Auto 0.0 /100WBC (0.0-0.2); Platelet Count 250 X10*3/uL (160-400); Red Blood Count 4.08 X10*6/uL (4.20-5.50); White Blood Count 6.0 X10*3/uL (4.8-10.8)
[2024-10-15 15:18] LABS: Alanine Aminotransferase 12 U/L (0-31); Albumin Level 4.4 g/dL (3.5-5.0); Alkaline Phosphatase 60 U/L (39-117); Anion Gap 10 (12-20); Aspartate Amino Transferase 22 U/L (5-31); Blood Urea Nitrogen 11 mg/dL (9-16); Calcium 9.2 mg/dL (8.4-10.2); Carbon Dioxide 24 mmol/L (22-29); Chloride 106 mmol/L (96-108); Creatinine Clr Calc Pharmacy 116.7; Estimated Glomerular Filt Rate > 60; Lipase 22 U/L (8-78); Potassium 3.8 mmol/L (3.3-5.1); Sodium 136 mmol/L (135-145); Total Protein 7.2 g/dL (6.5-8.0)
[2024-10-15 16:00] VITALS: BP 112/60; PULSE 80; RESP 16; TEMP 36.3; O2SAT 99
[2024-10-15 16:37] LABS: Appearance Urine Clear; Glucose Urine UA Negative (Negative); PH 6.5 (5.0-9.0); Specific Gravity - Urine 1.010 (1.005-1.025)
[2024-10-15 17:07] VITALS: BP 112/60; PULSE 80; RESP 16; TEMP 36.3; O2SAT 99
== END 2024-10-15 17:14 | disposition home or self-care (01) ==
PROVIDERS: Physician Assistant; Emergency Provider Emergency Medicine
DX: O26.851 Spotting complicating pregnancy, first trimester (principal); O99.611 Diseases of the digestive system complicating pregnancy, first trimester; K29.60 Other gastritis without bleeding; R19.7 Diarrhea, unspecified; Z3A.01 Less than 8 weeks gestation of pregnancy
CPT/HCPCS: 36415; 76705; 76801; 76817; 80053; 81001; 83690; 84702; 85025; 86140; 93975; 99283; 99284

== ENCOUNTER → 2024-10-15 14:05 | Outpatient (BNV) | payer OTHER, SELFPAY | PROVIDERS: Emergency Provider Emergency Medicine; Visit Provider Radiology Diagnostic Radiology | DX: O26.891 Other specified pregnancy related conditions, first trimester (principal); Z3A.01 Less than 8 weeks gestation of pregnancy; R10.11 Right upper quadrant pain | CPT/HCPCS: 76705; 76801; 76817 ==

== ENCOUNTER 2025-01-15 13:00 | Emergency (ER) | payer OTHER, SELFPAY ==
--- NOTE | ~2025-01-15 | US_ITS ---
CLINICAL HISTORY: , LLE pain hx DVT Venous duplex ultrasound bilateral lower extremity Comparison: US/SR - US VENOUS DUPLEX LE RT - 06/15/23 17:35 EDT Findings: The visualized deep veins are fully compressible with normal Doppler color flow and spectral tracings. No popliteal cyst. IMPRESSION: 1. Negative for bilateral lower extremity deep vein thrombosis. This document has been electronically signed by: Chastity Weiss MD on 01/15/2025 14:49:10
--- NOTE | ~2025-01-15 | XR_ITS ---
CLINICAL HISTORY: Cough 1 view chest x-ray Comparison: CR/SR - XR CHEST 2 VIEWS - 10/23/22 13:41 EDT Findings: No consolidation or effusion. 6.5 mm nodular density overlying the left parahilar region. Possible calcified nodule overlying the left paraspinal region above the diaphragm measuring 1.1 cm. Normal size heart. No acute fracture. IMPRESSION: No consolidation. Possible calcified nodules of the left lung. Clinical correlation is recommended. Nonemergent CT evaluation as indicated. This document has been electronically signed by: Chastity Weiss MD on 01/15/2025 16:02:43
[2025-01-15 13:02] VITALS: BP 122/56; PULSE 80; RESP 18; TEMP 36.4; O2SAT 98; BMI 33.3
--- NOTE | 2025-01-15 13:02 | ED.GENADULT ---
HPI - General Adult General Chief complaint: General Medical Stated complaint: low bp low heart beat Time Seen by Provider: 01/15/25 13:24 Source: patient Mode of arrival: ambulatory Limitations: no limitations History of Present Illness ED Provider: DR. Hassan HPI narrative: 34-year-old female at about 19 weeks high-risk follow-up at [facility], patient is cigarette and marijuana smoker otherwise no drugs or alcohol came in today for 5 days of feeling dizzy, chest tightness, left lower extremity swelling and pain, feeling palpitation patient had Holter monitor last week do not have the result yet, no abdominal pain, no vaginal bleed or discharge, no fever, no abdominal trauma. Related Data Previous Rx's ?Medication ?Instructions ?Recorded omeprazole 40 mg capsule,delayed 40 mg PO DAILY #30 caps 06/28/20 release cefuroxime axetil 250 mg tablet 250 mg PO BID 7 days #14 tabs 04/19/22 cyclobenzaprine 10 mg tablet 10 mg PO BEDTIME PRN muscle spasm 04/19/22 #7 tabs meclizine 25 mg tablet 25 mg PO DAILY PRN dizziness #14 04/19/22 tabs calcium carbonate 1,000 1 tab PO Q4-6H PRN dyspepsia #20 08/24/22 mg-simethicone 60 mg chewable tabs tablet (Maalox Advanced) omeprazole 20 mg tablet,delayed 20 mg PO DAILY #30 tabs 08/24/22 release albuterol sulfate 1.25 mg/3 mL 1.25 mg (3 mL) inhalation QID PRN 10/23/22 solution for nebulization shortness of breath or wheezing #90 mL prednisone 20 mg tablet 20 mg PO DAILY 7 days #7 tabs 10/23/22 metoclopramide HCl 5 mg tablet 5 mg PO Q6H PRN nausea #14 tabs 10/15/24 (Reglan) vitamins no.180-ferrous 1 tab PO DAILY #30 tabs 10/15/24 fumarate 27 mg-folic acid 1 mg tablet ( Plus Vitamin-Mineral) Allergies Allergy/AdvReac Type Severity Reaction Status Date / Time No Known Allergies (No Known Allergy Verified 01/15/25 13:04 Allergies*) Review of Systems Review of Systems: All other systems are reviewed and are negative Constitutional: Reports as per HPI and Reports no additional constitutional complaints Eyes: Reports as per HPI and Reports no additional eye complaints Reports system reviewed and no additional complaints, except as documented Cardiovascular: Reports as per HPI and Reports no additional cardiovascular complaints Respiratory: Reports as per HPI and Reports no additional respiratory complaints Gastrointestinal: Reports as per HPI and Reports no additional gastrointestinal complaints Genitourinary: Reports no additional female genitourinary complaints Musculoskeletal: Reports no additional musculoskeletal complaints Skin/Breast: Reports system reviewed and no additional complaints, except as docu Psychiatric: Reports no additional psychiatric complaints Endocrine: Reports no additional endocrine complaints Hematologic/Lymphatic: Reports no additional hematologic/lymphatic complaints Allergic/Immunologic: Reports no additional allergic/immunologic complaints Reports system reviewed and no additional complaints, except as documented and Reports Abnormal speech present [facility] Past Medical History Medical History Crohn's disease Tonsillectomy planned Social History Social History Alcohol intake: never Smoked in Last 30 Days: No Use of substances other than those prescribed or required for medical reasons: No Substance Use Type: Marijuana Advance Directives: No Advance Directives Information Provided: Yes Do you have a plan to hurt others: No Plan Patient : Yes Physical Exam ED Vital Signs: Vital Signs - 24 hr 01/15/25 13:02 01/15/25 16:05 Temperature 97.5 F 97.5 F Pulse Rate 80 80 Respiratory Rate 18 18 Blood Pressure 122/56 L 122/56 L Pulse Oximetry 98 98 Oxygen Delivery Method Room Air Room Air BMI result Body Mass Index 33.3 Vital signs have been reviewed and appear to be correct. Blood pressure elevated. Heart rate normal. Respiratory rate normal. Temperature normal. Oxygen saturation normal. Appearance: Alert. Oriented X3. No acute distress. Head: Normal external exam. Normocephalic. Atraumatic. No Jean signs noted. No raccoon eyes noted Eyes: PERRLA. EOMI. Conjunctiva and sclera normal. Eyelids normal. ENT: TM's Normal. Pharynx normal. Uvula midline. Moist mucous membranes. No trismus noted. No drooling noted. No muffled voice noted. Neck: Normal inspection. Neck supple. FROM. No adenopathy. Thyroid Normal. No meningeal signs. No neck mass noted. CVS: Normal heart rate and rhythm. Heart sound normal. No murmurs noted. Pulses normal throughout. Respiratory: No respiratory distress. Painless inspiration. Breath sounds normal. No wheezes/rales/rhonchi noted. Chest nontender. No accessory muscle usage noted or decreased air movement noted. Abdomen: Soft and nontender. Bowel sounds normal in all 4 quadrants. No distention noted. No organomegaly noted. No visible injury noted. Back: No CVA tenderness. Full range of motion noted. Skin: Skin warm and dry. Normal skin color. Normal skin turgor. No rashes/lesions/lacerations noted. Extremities: No lower extremity edema. Extremities exhibit normal range of motion. Extremities nontender. Neuro: Oriented X 3. Cranial nerve exam: II-XII are grossly intact No motor deficit. No sensory deficit. Reflexes normal. Course Course Course Narrative: This is a Rapid Medical Examination (RME) performed by Ulysses Samuel PA-C in triage. Full HPI, ROS, assessment and treatment plan per primary provider in the Main ED. Hx: 34 yo F A2 currently 5 mo w/ due date of 06/15/2025 follows w/ [facility] here w/ LLE pain, chest tightness, sob, blurred vision, BUCIO, dizziness on standing x2-3 days. hx DVT (cannot recall which leg), no longer on AC. cannot recall if it was provoked. also endorses chronic epigastric abd pain, worse x2-3 days. no N/V/D, vaginal bleeding. Plan: labs, UA, venous duplex Reevaluation(s) Reevaluation #1: 34-year-old female high-risk for for PROM patient is 19 weeks presented with chest pain, palpitation, not feeling well, patient had Holter monitor for 2 weeks patient reportedly awaiting for the door technician to contact her with the result, patient felt better after was given IV fluids, no chest pain. was a concern of DVT/pulmonary embolism given the D-dimer is with a normal and negative bilateral lower extremity venous ultrasound for DVT making a diagnosis of DVT or pulmonary embolism is unlikely. No abdominal contraction, no vaginal bleed, Patient was instructed to follow-up with her OBGYN to continue with the care. Time: 16:13 Medications Administered Discontinued Medications Generic Name Dose Route Start Last Admin Trade Name Freq PRN Reason Stop Dose Admin Lactated Ringer's 1,000 mls @ 999 mls/hr 01/15/25 13:45 01/15/25 16:09 Lr IV 01/15/25 14:45 Infused .Q1H1M KERRY Infusion Medical Decision Making Differential Diagnosis Differential Diagnoses: The differential diagnosis associated with the presentation includes (Pulmonary embolism, DVT, dysrhythmia, ACS, pneumonia, pneumothorax, pleural effusion, electrolyte derangement, severe anemia.) Admission/Observation Consideration of admission/observation: Escalation of care including admission/observation considered Lab Data MDM Lab Attestation statement: I reviewed the patient's lab results. 01/15/25 13:52 01/15/25 13:52 Labs: Lab Results 01/15/25 Range/Units 13:52 WBC 10.5 (4.8-10.8) X10*3/uL RBC 3.63 L (4.20-5.50) X10*6/uL Hgb 11.6 L (12.0-16.0) g/dl Hct 35.4 L (37.0-47.0) % MCV 97.5 (80.0-98.0) fL MCH 32.0 (27.0-33.0) pg MCHC 32.8 (31.0-35.0) g/dl RDW 13.3 (11.0-16.0) % Plt Count 213 (160-400) X10*3/uL MPV 10.7 (9.4-12.3) fL Immature Gran % (Auto) 0.5 H (0.0-0.4) % Neut % (Auto) 78.0 H (45-73) % Lymph % (Auto) 15.0 L (20-40) % [place] % (Auto) 6.1 (2-11) % Eos % (Auto) 0.2 (0-4) % Baso % (Auto) 0.2 (0-2) % Lymph # (Auto) 1.6 (1.2-4.9) X10*3/uL [place] # (Auto) 0.6 (0.1-1.2) X10*3/uL Eos # (Auto) 0.0 (0.0-0.4) X10*3/uL Baso # (Auto) 0.0 (0.0-0.2) X10*3/uL Abs Immat Gran (auto) 0.05 H (0.00-0.03) X10*3/uL Absolute Neuts (auto) 8.2 (2.0-8.3) x10*3/uL Absolute Nucleated RBC 0.000 (0.0-0.012) X10*3/uL Nucleated RBC % (auto) 0.0 (0.0-0.2) /100WBC D-Dimer High Sensitivty 168 NG/ML Sodium 137 (135-145) mmol/L Potassium 3.7 (3.3-5.1) mmol/L Chloride 108 (96-108) mmol/L Carbon Dioxide 21 L (22-29) mmol/L Anion Gap 12 (12-20) BUN 14 (9-16) mg/dL Creatinine 0.53 (0.5-1.4) mg/dL Estim Creat Clear Calc 151.6 Estimated GFR > 60 Random Glucose 96 (60-115) mg/dL Calcium 9.0 (8.4-10.2) mg/dL Magnesium 2.0 (1.6-2.6) mg/dL Total Bilirubin 0.4 (0.0-1.0) mg/dL AST 17 (5-31) U/L ALT 19 (0-31) U/L Alkaline Phosphatase 57 (39-117) U/L Troponin I High Sens 2.8 (<3.5-17.0) ng/L Total Protein 6.7 (6.5-8.0) g/dL Albumin 3.7 (3.5-5.0) g/dL Beta HCG, Quant 35772 mIU/mL Independent Interpretation I performed an independent interpretation of an: Plain X-Ray (Chest:No consolidation or effusion. 6.5 mm nodular density overlying the left parahilar region. Possible calcified nodule overlying the left paraspinal region above the diaphragm measuring 1.1 cm. Normal size heart. No acute fracture.) and Ultrasound (Venous U.S.: No DVT.) Radiology Impression Discussion of test interpretation with radiology: I have reviewed the radiologist's reading. Discharge Plan Discharge Clinical Impression: Dizziness, Lung nodule Patient Disposition: Home, Self-Care Instructions: Dizziness (ED), Pulmonary Nodules (ED) Additional Instructions: Follow-up with your OBGYN at [facility]. Follow-up with your door technician to get the result of the Holter monitor. Follow-up with your primary doctor for left lung nodule that needs x-ray in 6 months for follow-up. Prescriptions: No Action omeprazole 40 mg capsule,delayed release(DR/EC) 40 mg PO DAILY Qty: 30 0RF cefuroxime axetil 250 mg tablet 250 mg PO BID 7 Days Qty: 14 0RF meclizine 25 mg tablet 25 mg PO DAILY PRN (Reason: dizziness) Qty: 14 0RF cyclobenzaprine 10 mg tablet 10 mg PO BEDTIME PRN (Reason: muscle spasm) Qty: 7 0RF omeprazole 20 mg tablet,delayed release (DR/EC) 20 mg PO DAILY Qty: 30 0RF Maalox Advanced 1,000-60 mg tablet,chewable 1 tab PO Q4-6H PRN (Reason: dyspepsia) Qty: 20 0RF metoclopramide HCl [Reglan] 5 mg tablet 5 mg PO Q6H PRN (Reason: nausea) Qty: 14 0RF Plus Vitamin-Mineral 27 mg iron- 1 mg tablet 1 tab PO DAILY Qty: 30 2RF prednisone 20 mg tablet 20 mg PO DAILY 7 Days Qty: 7 0RF albuterol sulfate 1.25 mg/3 mL solution for nebulization 1.25 mg inhalation QID PRN (Reason: shortness of breath or wheezing) Qty: 90 0RF Print Language: Romanian
--- NOTE | 2025-01-15 13:04 | ECG_ITS ---
Test Reason : CHEST PAIN Blood Pressure : */* mmHG Vent. Rate : 70 BPM Atrial Rate : 70 BPM P-R Int : 142 ms QRS Dur : 84 ms QT Int : 402 ms P-R-T Axes : 34 3 27 degrees QTcB Int : 434 ms Normal sinus rhythm Normal ECG When compared with ECG of 23-Oct-2022 13:08, No significant change was found Referred By: Shelley Samuel Electronically Signed By: JEANETTE CALLES MD
--- OUTSIDE RECORDS SUMMARY | 2025-01-15 13:22 | XMS_ITS | Clinical Summary ---
Author Organization [facility] Address [address] [place] [address] Phone Care Team Providers Care Head Porter Baggage Name Role Phone Physician, Pcp Unknown Primary Care Provider Laurie vailable Allergies No known active allergies Medications diphenhydrAMINE (BENADRYL) 25 mg capsule Take 1 capsule (25 mg total) by mouth every 4 (four) hours if needed for sleep for up to 4 days. 16 capsule 11/27/2024 Active Encounters Date Type Department Care Team Description 11/27/2024 3:50 PM EDT - 11/27/2024 10:26 PM EDT Emergency [facility] Emergency [address] [place] [phone] Roberto Casanova MD Kokkinos, Erika, MD Chest pain, unspecified type (Primary Dx); Dizziness; Shortness of breath Discharge Disposition: Home or Self Care 11/24/2024 5:06 PM EDT - 11/24/2024 8:29 PM EDT Emergency [facility] Emergency [address] [place] [phone] Discharge Disposition: Home or Self Care from Last 3 Months Medical History Medical History Date Comments Crohn's disease (CMS/HCC V24, CMS/HCC V28) Asthma Social History Tobacco Use Types Packs/Day Years Used Date Smoking Tobacco: Never Assessed Estimated Date of Delivery Comme nts Yes 06/15/2025 Sex and Gender Information Value Date Recorded Sex Assigned at Not on file Legal Sex Female 2:56 PM EST Gender Identity Not on file Sexual Orientation Not on file Obstetrics History Para Term AB IAB SAB Ectopic Multiple Livin g Live Births 1 Date Outcome GA Total Labor Labor/2nd/3rd Weight Sex Type Anes PTL Xiomara A1 A5 Name Clin Current Last Filed Vital Signs Vital Sign Reading Time Taken Comments Blood Pressure 98/61 11/27/2024 10:19 PM EDT Pulse 81 11/27/2024 10:19 PM EDT Temperature 37 C (98.6 F) 11/27/2024 10:19 PM EDT Respiratory Rate 16 11/27/2024 10:19 PM EDT Oxygen Saturation 98% 11/27/2024 10:19 PM EDT Inhaled Oxygen Concentration - - Weight 80.7 kg (178 lb) 11/27/2024 3:18 PM EDT Height 157.5 cm (5' 2 ) 11/27/2024 3:18 PM EDT Body Mass Index 32.56 11/27/2024 3:18 PM EDT Plan of Treatment Health Maintenance Due Date Last Done Comments Pneumococcal Vaccine: Pediatrics (0 to 5 Years) and At-Risk Patients (6 to 49 Years) (1 of 2 - PCV) 10/13/2011 Cervical Cancer Screening: Pap Smear 2013 HIV Screening 03/06/2022 Hepatitis C Screening 03/06/2022 Social Influencers of Health Screening 03/06/2022 Depression Screening 04/07/2024 COVID-19 Vaccine ( season) 2024 07/23/2022, 12/07/2021, 10/03/2021 Influenza Vaccine (#1) 2024 , 04/02/2019, 12/31/2015, Additional history exists RSV Immunization Adult Patients (1 - Risk 1-dose series) 04/20/2025 DTaP,Tdap,and Td Vaccines (10 - Td or Tdap) 10/10/2030 10/10/2020, 04/02/2019, 10/20/2015, Additional history exists IPV Vaccines Completed 04/30/1994, 05/08, 02/05/1993, Additional history exists HPV Vaccines Completed 05/02/2008, 10/06, 12/18/2006 Hepatitis B Vaccines Completed 10/13/2017, 10/01/2016, 05/21/1993, [...] on patient's age to complete this topic Procedures Procedure Name Priority Date/Time Associated Diagnosis Comments ECG ANNOTATED 11/29/2024 CT ANGIO CHEST WO AND/OR W CONTRAST STAT 11/27/2024 8:45 PM EDT Chest pain, unspecified type CBC WITH AUTO DIFFERENTIAL STAT 11/27/2024 6:18 PM EDT CBC AND DIFFERENTIAL STAT 11/27/2024 6:18 PM EDT ECG 12-LEAD STAT 11/27/2024 5:36 PM EDT ZAVALETA URINE CULTURE TUBE STAT 11/27/2024 5:32 PM EDT URINALYSIS WITH REFLEX MICROSCOPIC AND CULTURE STAT 11/27/2024 5:32 PM EDT URINALYSIS WITH REFLEX MICROSCOPIC AND CULTURE STAT 11/27/2024 5:32 PM EDT TROPONIN I HIGH SENSITIVITY STAT 11/27/2024 5:29 PM EDT HCG, QUANTITATIVE STAT 11/27/2024 5:2 9 PM EDT COMPREHENSIVE METABOLIC PANEL STAT 11/27/2024 5:29 PM EDT CBC WITH AUTO DIFFERENTIAL STAT 11/24/2024 5:33 PM EDT MAGNESIUM STAT 11/24/2024 5:33 PM EDT BASIC METABOLIC PANEL STAT 11/24/2024 5:33 PM EDT CBC AND DIFFERENTIAL STAT 11/24/2024 5:33 PM EDT ECG 12-LEAD STAT 11/24/2024 5:29 PM EDT from Last 3 Months Results * ECG-Annotated (11/29/2024) us Provider Onbase MD ECG ORDERABLES Final Result * CT Angio Chest wo and/or w Contrast (11/27/2024 8:45 PM EDT) Anatomical Region Laterality Modality Body Computed Tomogra phy 11/27/2024 9:34 PM EDT Impressions 11/27/2024 9:34 PM EDT 1. Limited evaluation for pulmonary embolism due to suboptimal contrast timing. No evidence of large central pulmonary embolism within these limitations. No evidence of right heart strain. 2. No acute intrathoracic findings. This document has been electronically signed by: Deven Martinez MD on 11/27/2024 21:34:26 Narrative 11/27/2024 9:34 PM EDT INDICATION: PE suspected, high prob CT angiography chest with contrast. 3D Postprocessing. Comparison: None provided Findings: Limited evaluation of the pulmonary vasculature due to suboptimal timing of the contrast bolus resulting in systemic greater than pulmonary enhancement. No evidence of large central pulmonary embolism within these limitations. Normal caliber of the main pulmonary artery. The heart is normal size. RV/LV ratio is normal. The thoracic aorta is normal caliber. The visualized thyroid and mediastinum are unremarkable. The upper abdomen is unremarkable. No acute fractures. Procedure Note Deven Martinez - 11/27/2024 INDICATION: PE suspected, high prob CT angiography chest with contrast. 3D Postprocessing. Comparison: None provided Findings: Limited evaluation of the pulmonary vasculature due to suboptimal timing of the contrast bolus resulting in systemic greater than pulmonary enhancement. No evidence of large central pulmonary embolism within theselimitations. Normal caliber of the main pulmonary artery. The heart is normal size. RV/LV ratio is normal. The thoracic aorta is normal caliber. The visualized thyroid and mediastinum are unremarkable. The upper abdomen is unremarkable. No acute fractures. IMPRESSION: 1. Limited evaluation for pulmonary embolism due to suboptimal contrast timing. No evidence of large central pulmonary embolism within these limitations. No evidence of right heart strain. 2. No acute intrathoracic findings. This document has been electronically signed by: Deven Martinez MD on 11/27/2024 21:34:26 Roberto Casanova MD IMG CT PROCEDURES Final Result * (ABNORMAL) CBC auto differential (11/27/2024 6:18 PM EDT) Only the most recent of2 resultswithin the time period is included. WBC 11.2(H) 4.8 - 10.8 K/mcL LAB HEMETOLOGY METHOD 11/27/2024 7:01 PM [facility] RBC 3.80 3.80 - 4.80 M/mcL LAB HEMETOLOGY METHOD 11/27/2024 7:01 PM [facility] Hemoglobin 11.9 11.5 - 16.0 g/dL LAB HEMETOLOGY METHOD 11/27/2024 7:01 PM [facility] Hematocrit 36.0 35.0 - 47.0 % LAB HEMETOLOGY METHOD 11/27/2024 7:01 PM [facility] MCV 96.0 79.0 - 98.0 FL LAB HEMETOLOGY METHOD 11/27/2024 7:01 PM [facility] MCH 31.7 27.0 - 32.0 pcg LAB HEMETOLOGY METHOD 11/27/2024 7:01 PM [facility] MCHC 33.1 32.0 - 37.0 g/dL LAB HEMETOLOGY METHOD 11/27/2024 7:01 PM [facility] RDW 12.9 11.0 - 15.0 % LAB HEMETOLOGY METHOD 11/27/2024 7:01 PM [facility] Platelets 218 130 - 400 K/mcL LAB HEMETOLOGY METHOD 11/27/2024 7:01 PM [facility] MPV 10.7 7.0 - 11.0 FL LAB HEMETOLOGY METHOD 11/27/2024 7:01 PM [facility] NRBC 0.0 <1.0 % LAB HEMETOLOGY METHOD 11/27/2024 7:01 PM [facility] NRBC Absolute 0.00 <0.10 K/mcL LAB HEMETOLOGY METHOD 11/27/2024 7:01 PM [facility] Neutrophils Relative 78.6 % LAB HEMETOLOGY METHOD 11/27/2024 7:01 PM [facility] Lymphocytes Relative 14.5 % LAB HEMETOLOGY METHOD 11/27/2024 7:01 [facility] Monocytes Relative 6.1 % LAB HEMETOLOGY METHOD 11/27/2024 7:01 PM [facility] Eosinophils Relative 0.2 % LAB HEMETOLOGY METHOD 11/27/2024 7:01 PM [facility] Basophils Relative 0.2 % LAB HEMETOLOGY METHOD 11/27/2024 7:01 PM [facility] Immature Granulocytes Relative 0.4 % LAB HEMETOLOGY METHOD 11/27/2024 7:01 PM [facility] Neutrophils Absolute 8.77(H) 1.50 - 7.00 K/mcL LAB HEMETOLOGY METHOD 11/27/2024 7:01 PM [facility] Lymphocytes Absolute 1.62 1.00 - 5.00 K/mcL LAB HEMETOLOGY METHOD 11/27/2024 7:01 PM [facility] Monocytes Absolute 0.68 0.20 - 1.00 K/mcL LAB HEMETOLOGY METHOD 11/27/2024 7:01 PM EDT [facility] Eosinophils Absolute 0.02 0.00 - 0.50 K/mcL LAB HEMETOLOGY METHOD 11/27/2024 7:01 PM EDT [facility] Basophils Absolute 0.02 0.00 - 0.20 K/mcL LAB HEMETOLOGY METHOD 11/27/2024 7:01 PM EDT [facility] Immature Granulocytes Absolute 0.05(H) 0.00 - 0.03 K/mcL LAB HEMETOLOGY METHOD 11/27/2024 7:01 PM EDT [facility] Blood Venous blood specimen / Unknown Venipuncture / Unknown 11/27/2024 6:18 PM EDT 11/27/2024 6:47 PM EDT Roberto Casanova MD LAB BLOOD ORDERABLES Final Res ult [facility] [address] [place] [address], [place] [phone] * ECG 12 lead (11/27/2024 5:36 PM EDT) Only the most recent of2 resultswithin the time period is included. Ventricular Rate ECG 73 BPM GEMUSE Atrial Rate 73 BPM GEMUSE P-R Interval 134 ms GEMUSE QRS Duration 78 ms GEMUSE Q-T Interval 372 ms GEMUSE QTc 409 ms GEMUSE P Wave [place] 50 degrees GEMUSE R [place] 9 degrees GEMUSE T [place] 30 degrees GEMUSE ECG Interpretation Normal sinus rhythm with sinus arrhythmia Normal ECG When compared with ECG of 24-NOV-2024 17:29, No significant change was found Confirmed by LAUREN FAULKNER ([id number]) on 11/28/2024 8:26:33 AM GEMUSE 11/27/2024 5:36 PM EDT 11/28/2024 8:26 AM EDT us Roberto Casanova MD ECG ORDERABLES Final Result GEMUSE * (ABNORMAL) Urinalysis with reflex microscopic and culture (11/27/2024 5:32 PM EDT) Specific [place] Urine 1.034(H) 1.003 - 1.030 LAB URINALYSIS - AUTOMATED METHOD 11/27/2024 5:57 PM EDT [facility] pH, Urine 5.5 5.0 - 8.0 pH LAB URINALYSIS - AUTOMATED METHOD 11/27/2024 5:57 PM [facility] Leukocytes, Urine Negative Negative LAB URINALYSIS - AUTOMATED METHOD 11/27/2024 5:57 PM [facility] Nitrite, Urine Negative Negative LAB URINALYSIS - AUTOMATED METHOD 11/27/2024 5:57 PM [facility] Protein, Urine Trace <=Trace mg/dL LAB URINALYSIS - AUTOMATED METHOD 11/27/2024 5:57 PM [facility] Glucose, Urine Negative Negative mg/dL LAB URINALYSIS - AUTOMATED METHOD 11/27/2024 5:57 PM [facility] Ketones, Urine Trace(A) Negative mg/dL LAB URINALYSIS - AUTOMATED METHOD 11/27/2024 5:57 PM [facility] Urobilinogen, Urine 1.0 0.2 - 1.0 mg/dL LAB URINALYSIS - AUTOMATED METHOD 11/27/2024 5:57 PM [facility] Bilirubin, Urine Negative Negative LAB URINALYSIS - AUTOMATED METHOD 11/27/2024 5:57 PM [facility] Blood, Urine Negative Negative LAB URINALYSIS - AUTOMATED METHOD 11/27/2024 5:57 PM [facility] Urine Urine specimen obtained by clean catch procedure / Unknown Non-blood Collection / Unknown 11/27/2024 5:32 PM EDT 11/27/2024 5:49 PM EDT us Roberto Casanova MD LAB URINE ORDERABLES Final Res ult Performing Organization Address [facility]/ZIP Co de Phone Number [facility] [address] [place] [address], [place] [phone] * Zavaleta urine culture tube (11/27/2024 5:32 PM EDT) [facility] Extra Tube Hold for add-ons. 11/27/2024 7:01 PM EDT [facility] Comment:Auto resulted. Urine Urine specimen obtained by clean catch procedure / Unknown Non-blood Collection / Unknown 11/27/2024 5:32 PM EDT 11/27/2024 5:49 PM EDT us Roberto Casanova MD LAB URINE ORDERABLES Final Res ult Performing Organization Address [facility] de Phone Number [facility] [address] [place] [address], [place] [phone] * Troponin I high sensitivity (11/27/2024 5:29 PM EDT) [facility] High Sensitivity Troponin I 3 <=54 ng/L LAB CHEMISTRY METHOD 11/27/2024 6:19 PM EDT [facility] Blood Venous blood specimen / Unknown Venipuncture / Unknown 11/27/2024 5:29 PM EDT 11/27/2024 5:49 PM EDT Narrative [facility] - 11/27/2024 6:19 PM EDT High levels of biotin in samples may falsely decrease hsTroponin values. Use caution when interpreting hsTroponin results in patients taking biotin who exhibit renal impairment (eGFR <60) or in patients taking more than 20 mg/day of biotin. us Roberto Casanova MD LAB BLOOD ORDERABLES Final Res ult Performing Organization Address [facility] [place] de Phone Number [facility] [address] [place] [address], * hCG Quantitative (11/27/2024 5:29 PM EDT) hCG Quant 42,345 mIU/mL LAB CHEMISTRY METHOD 11/27/2024 6:30 PM EDT [facility] Blood Venous blood specimen / Unknown Venipuncture / Unknown 11/27/2024 5:29 PM EDT 11/27/2024 5:49 PM EDT Narrative [facility] - 11/27/2024 6:30 PM EDT Quantitative HCG Reference Ranges Time after Conception MIU/ML 0.2-1 Week 5-50 1-2 Weeks 50-500 2-3 Weeks 100-5,000 3-4 Weeks 500-10,000 4-5 Weeks 1,000-50,000 5-6 Weeks 10,000-100,000 6-8 Weeks 15,000-200,000 2-3 Months 10,000-100,000 2nd Trimester 1,000-94,000 3rd Trimester 2,500-90,000 Non- Females 1-3 Roberto Casanova MD LAB BLOOD ORDERABLES Final Res ult Performing Organization Address [facility] Co de Phone Number [facility] [address] [place] [address], * Comprehensive Metabolic Panel (CMP) (11/27/2024 5:29 PM EDT) Sodium 134 133 - 145 mmol/L LAB CHEMISTRY METHOD 11/27/2024 6:30 PM EDT [facility] Potassium 4.3 3.5 - 5.5 mmol/L LAB CHEMISTRY METHOD 11/27/2024 6:30 PM [facility] Comment:Hemolysis present Chloride 105 96 - 110 mmol/L LAB CHEMISTRY METHOD 11/27/2024 6:30 PM [facility] CO2 23 21 - 32 mmol/L LAB CHEMISTRY METHOD 11/27/2024 6:30 PM [facility] Anion Gap 6 3 - 11 LAB CHEMISTRY METHOD 11/27/2024 6:30 PM [facility] Glucose 95 70 - 100 mg/dL LAB CHEMISTRY METHOD 11/27/2024 6:30 PM [facility] BUN 12 5 - 25 mg/dL LAB CHEMISTRY METHOD 11/27/2024 6:30 PM [facility] Creatinine 0.52 0.50 - 1.10 mg/dL LAB CHEMISTRY METHOD 11/27/2024 6:30 PM [facility] eGFR 127 >=60 mL/min/1. 73m2 LAB CHEMISTRY METHOD 11/27/2024 6:30 PM [facility] Comment:Calculation based on the Chronic Kidney Disease Epidemiology Collaboration (CKD-EPI) equation refit without adjustment for race. BUN/Creatinine Ratio 23.1 LAB CHEMISTRY METHOD 11/27/2024 6:30 PM [facility] Calcium 9.2 8.5 - 10.5 mg/dL LAB CHEMISTRY METHOD 11/27/2024 6:30 PM [facility] AST (SGOT) 16 10 - 42 unit/L LAB CHEMISTRY METHOD 11/27/2024 6:30 PM [facility] Comment:Hemolysis present ALT (SGPT) 24 10 - 60 unit/L LAB CHEMISTRY METHOD 11/27/2024 6:30 PM [facility] Alkaline Phosphatase 63 42 - 121 unit/L LAB CHEMISTRY METHOD 11/27/2024 6:30 PM [facility] Total Protein 7.3 6.0 - 8.0 g/dL LAB CHEMISTRY METHOD 11/27/2024 6:30 PM EDT [facility] Albumin 3.7 3.2 - 5.0 g/dL LAB CHEMISTRY METHOD 11/27/2024 6:30 PM EDT [facility] Total Bilirubin 0.3 0.0 - 1.4 mg/dL LAB CHEMISTRY METHOD 11/27/2024 6:30 PM EDT [facility] Blood Venous blood specimen / Unknown Venipuncture / Unknown 11/27/2024 5:29 PM EDT 11/27/2024 5:49 PM EDT Roberto Casanova MD LAB BLOOD ORDERABLES Final Res ult Performing Organization Address [facility]/ZIP Co de Phone Number [facility] [address] [place] [address], [place] [phone] * Magnesium (11/24/2024 5:33 PM EDT) Magnesium 2.1 1.9 - 2.6 mg/dL LAB CHEMISTRY METHOD 11/24/2024 6:21 PM EDT [facility] Blood Venous blood specimen / Unknown Venipuncture / Unknown 11/24/2024 5:33 PM EDT 11/24/2024 5:54 PM EDT Charles Quintana MD LAB BLOOD ORDERABLES Final Resul t Performing Organization Address City/[facility]/ZIP Co de Phone Number [facility] [address] [place] [address], [place] [phone] * Basic metabolic panel (11/24/2024 5:33 PM EDT) Sodium 137 133 - 145 mmol/L LAB CHEMISTRY METHOD 11/24/2024 6:21 PM EDT [facility] Potassium 4.2 3.5 - 5.5 mmol/L LAB CHEMISTRY METHOD 11/24/2024 6:21 PM EDT [facility] Chloride 103 96 - 110 mmol/L LAB CHEMISTRY METHOD 11/24/2024 6:21 PM EDT [facility] CO2 28 21 - 32 mmol/L LAB CHEMISTRY METHOD 11/24/2024 6:21 PM [facility] Anion Gap 6 3 - 11 LAB CHEMISTRY METHOD 11/24/2024 6:21 PM [facility] Glucose 86 70 - 100 mg/dL LAB CHEMISTRY METHOD 11/24/2024 6:21 PM [facility] BUN 10 5 - 25 mg/dL LAB CHEMISTRY METHOD 11/24/2024 6:21 PM [facility] Creatinine 0.93 0.50 - 1.10 mg/dL LAB CHEMISTRY METHOD 11/24/2024 6:21 PM [facility] eGFR 84 >=60 mL/min/1. 73m2 LAB CHEMISTRY METHOD 11/24/2024 6:21 PM T [facility] Comment:Calculation based on the Chronic Kidney Disease Epidemiology Collaboration (CKD-EPI) equation refit without adjustment for race. BUN/Creatinine Ratio 10.8 LAB CHEMISTRY METHOD 11/24/2024 6:21 PM [facility] Calcium 9.3 8.5 - 10.5 mg/dL LAB CHEMISTRY METHOD 11/24/2024 6:21 PM [facility] Blood Venous blood specimen / Unknown Venipuncture / Unknown 11/24/2024 5:33 PM EDT 11/24/2024 5:54 PM EDT us Charles Quintana MD LAB BLOOD ORDERABLES Final Resul t [facility] [address] [place] [address], [place] [phone] from Last 3 Months Insurance [facility] Care Teams Head Porter Baggage Relationship Specialty Start Date End Date Physician, Pcp Unknown PCP - General 06/11/24
[2025-01-15 13:59] LABS: MANUAL DIFF FLAG NO
[2025-01-15 14:01] LABS: Hematocrit 35.4 % (37.0-47.0); Hemoglobin 11.6 g/dl (12.0-16.0); Imm Gran Abs Auto 0.05 X10*3/uL (0.00-0.03); Imm Gran Pct Auto 0.5 % (0.0-0.4); Lymphocytes Absolute Auto 1.6 X10*3/uL (1.2-4.9); Mean Corpuscular HGB Conc 32.8 g/dl (31.0-35.0); Mean Corpuscular Hemoglobin 32.0 pg (27.0-33.0); Mean Corpuscular Volume 97.5 fL (80.0-98.0); NRBC Abs Auto 0.000 X10*3/uL (0.0-0.012); NRBC Pct Auto 0.0 /100WBC (0.0-0.2); Platelet Count 213 X10*3/uL (160-400); Red Blood Count 3.63 X10*6/uL (4.20-5.50); White Blood Count 10.5 X10*3/uL (4.8-10.8)
[2025-01-15 14:10] LABS: D Dimer High Sensitivity 168 NG/ML
[2025-01-15] MEDS: Lactated Ringers 1,000 ML 999 ML IV (14:12)
[2025-01-15 14:29] LABS: Alanine Aminotransferase 19 U/L (0-31); Albumin Level 3.7 g/dL (3.5-5.0); Anion Gap 12 (12-20); Aspartate Amino Transferase 17 U/L (5-31); Blood Urea Nitrogen 14 mg/dL (9-16); Calcium 9.0 mg/dL (8.4-10.2); Carbon Dioxide 21 mmol/L (22-29); Chloride 108 mmol/L (96-108); Creatinine Clr Calc Pharmacy 151.6; Estimated Glomerular Filt Rate > 60; Magnesium 2.0 mg/dL (1.6-2.6); Potassium 3.7 mmol/L (3.3-5.1); Sodium 137 mmol/L (135-145); Total Protein 6.7 g/dL (6.5-8.0); Troponin-I High Sensitivity 2.8 ng/L (<3.5-17.0)
[2025-01-15 14:42] LABS: Alkaline Phosphatase 57 U/L (39-117)
[2025-01-15 16:03] VITALS: BP 120/62; PULSE 77; RESP 19; TEMP 36.9; O2SAT 99
[2025-01-15 16:05] VITALS: BP 122/56; PULSE 80; RESP 18; TEMP 36.4; O2SAT 98
[2025-01-15 16:35] VITALS: BP 122/56; PULSE 80; RESP 18; TEMP 36.4; O2SAT 98
== END 2025-01-15 16:36 | disposition home or self-care (01) ==
PROVIDERS: Physician Assistant Medical; Emergency Provider Emergency Medicine
DX: O99.332 Smoking (tobacco) complicating pregnancy, second trimester (principal); O99.322 Drug use complicating pregnancy, second trimester; Z3A.19 19 weeks gestation of pregnancy; R42 Dizziness and giddiness; R07.89 Other chest pain; R60.0 Localized edema; R91.1 Solitary pulmonary nodule; R11.0 Nausea
CPT/HCPCS: 36415; 71045; 80053; 83735; 84484; 84702; 85025; 85379; 93005; 93970; 96360; 96361; 99284; 99285; J7120

== ENCOUNTER → 2025-01-15 13:04 | Outpatient (BNV) | payer OTHER, SELFPAY | PROVIDERS: Emergency Provider Emergency Medicine; Visit Provider Internal Medicine Cardiovascular Disease | DX: R07.89 Other chest pain (principal) | CPT/HCPCS: 93010 ==

== ENCOUNTER → 2025-01-15 13:06 | Outpatient (BNV) | payer OTHER, SELFPAY | PROVIDERS: Emergency Provider Emergency Medicine; Visit Provider Nuclear Medicine | DX: O26.892 Other specified pregnancy related conditions, second trimester (principal); M79.605 Pain in left leg; Z3A.13 13 weeks gestation of pregnancy; R05.9 Cough, unspecified | CPT/HCPCS: 71045; 93970 ==